=== PATIENT | male | born 1960 | race Caucasian/White ===

== ENCOUNTER 2017-05-09 09:13 | Emergency (ER) | payer MEDICARE, OTHER ==
[2017-05-09 09:13] VITALS: BMI 24.9
[2017-05-09 09:31] VITALS: BP 126/77; PULSE 75; RESP 18; TEMP 97.4; O2SAT 98
--- NOTE | 2017-05-09 10:27 | C.PDOC ---
History Of Present Illness 56-year-old male, presents to the emergency department with redness and swelling to the right eye. Patient notes watery discharge from the eye. Denies fevers, chills. Time Seen by Provider: 05/09/17 09:31 Chief Complaint (Nursing): Eye Problem History Per: Patient History/Exam Limitations: no limitations Onset/Duration Of Symptoms: Days Current Symptoms Are (Timing): Still Present Past Medical History Reviewed: Historical Data, Nursing Documentation, Vital Signs Vital Signs: Last Vital Signs Temp 97.4 F L 05/09/17 09:26 Pulse 75 05/09/17 09:26 Resp 18 05/09/17 09:26 BP 126/77 05/09/17 09:26 Pulse Ox 98 05/09/17 10:32 - Medical History PMH: Pneumonia Denies: Chronic Kidney Disease - [facility] Procedures DILATION OF 1 COR ART WITH DRUG-ELUT INTRALUM, PERC APPROACH (11/26/15) Family History: States: No Known Family Hx - Social History Hx Tobacco Use: Yes Hx Alcohol Use: Yes (social) Hx Substance Use: No - Immunization History Hx Influenza Vaccination: No Review Of Systems Constitutional: Negative for: Fever Eyes: Positive for: Vision Change, Eyelid Inflammation Respiratory: Negative for: Cough Physical Exam - Physical Exam Appears: Well, Non-toxic, No Acute Distress Skin: Warm, Dry, No Rash Head: Normacephalic Eye(s): right: Other (scleral injection with mild swelling and erythema of the upper eyelid. There is mild perioribital erythema. B/L eyes cloudy cornea, chronic.) Neurological/Psych: Oriented x3, Normal Speech ED Course And Treatment O2 Sat by Pulse Oximetry: 98 (RA) Pulse Ox Interpretation: Normal Progress Note: Patient treated with Clindamycin. On reassessment, patient is resting comfortably, and is in no acute distress. Patient was instructed to follow up with physician/clinic in 1-2 days for further evaluation. Disposition Counseled Patient/Family Regarding: Diagnosis, Need For Followup, Rx Given - Disposition Referrals: Ryan High [Staff Provider] - Disposition: HOME/ ROUTINE Disposition Time: 10:35 Condition: STABLE Additional Instructions: FOLLOW UP WITH YOUR EYE DOCTOR AT [facility] IN [place] 1-2 DAYS USE MEDICATIONS DIRECTED APPLY WARM COMPRESSES TO AREA SEVERAL TIMES DAILY RETURN TO ER IF SYMPTOMS WORSEN Prescriptions: Bacitracin [Bacitracin Opht OINT] 1 applic OD TID #1 tube Clindamycin [Cleocin] 300 mg PO TID #21 cap Forms: [facility] (Khmer), General Discharge Instructions Print Language: CYMRAES - Clinical Impression Clinical Impression: Blepharitis, right eye, Periorbital cellulitis of right eye - Scribe Statement The provider has reviewed the documentation as recorded by the Scribe (Mitchell Del Real) All medical record entries made by the Scribe were at my direction and personally dictated by me. I have reviewed the chart and agree that the record accurately reflects my personal performance of the history, physical exam, medical decision making, and the department course for this patient. I have also personally directed, reviewed, and agree with the discharge instructions and disposition.
== END 2017-05-09 10:42 | disposition home or self-care (01) ==
LOC: C.ER 09:13
DX: H01.001 Unspecified blepharitis right upper eyelid (principal); L03.213 Periorbital cellulitis; Z72.0 Tobacco use

== ENCOUNTER 2017-06-30 13:12 | Observation (INO) | payer MEDICARE, OTHER ==
[2017-06-30 13:13] VITALS: BMI 24.9
--- NOTE | 2017-06-30 13:51 | C.PDOC ---
History Of Present Illness 56yo male with cardiac history (unable to recall exactly), presents to ED with complaints of chest pain and back pain for the past day. Patient states the pain is left sided and denies any fever, chills, shortness of breath, weakness, numbness. Patient did have a PTCA done by Dr. Francis in 1026. He currently offers no other medical complaints. Time Seen by Provider: 06/30/17 13:23 Chief Complaint (Nursing): Chest Pain History Per: Patient History/Exam Limitations: no limitations Onset/Duration Of Symptoms: Days (1) Current Symptoms Are (Timing): Still Present Quality: "Pain" Past Medical History Reviewed: Historical Data, Nursing Documentation, Vital Signs Vital Signs: Last Vital Signs Temp 97.8 F 06/30/17 13:24 Pulse 64 06/30/17 15:49 Resp 16 06/30/17 15:49 BP 128/80 06/30/17 15:49 Pulse Ox 98 06/30/17 17:15 - Medical History PMH: Pneumonia Denies: Chronic Kidney Disease Surgical History: No Surg Hx - [facility] Procedures DILATION OF 1 COR ART WITH DRUG-ELUT INTRALUM, PERC APPROACH (11/26/15) Family History: States: Unknown Family Hx - Social History Hx Tobacco Use: Yes Hx Alcohol Use: Yes (social) Hx Substance Use: No - Immunization History Hx Influenza Vaccination: No Review Of Systems Except As Marked, All Systems Reviewed And Found Negative. Constitutional: Negative for: Fever, Chills Cardiovascular: Positive for: Chest Pain Respiratory: Negative for: Shortness of Breath Musculoskeletal: Positive for: Back Pain Neurological: Negative for: Weakness, Numbness Physical Exam - Physical Exam Appears: Non-toxic, No Acute Distress Skin: Normal Color, Warm, Dry Head: Atraumatic, Normacephalic Eye(s): bilateral: Normal Inspection, EOMI, right: Other (opaque cataract to right eye) Ear(s): Bilateral: Normal Neck: Normal ROM, Supple Chest: Symmetrical, No Tenderness Cardiovascular: Rhythm Regular Respiratory: Normal Breath Sounds, No Wheezing Gastrointestinal/Abdominal: Normal Exam Back: Normal Inspection, No CVA Tenderness, No Vertebral Tenderness, No Paraspinal Tenderness Extremity: Normal ROM, No Deformity, No Swelling Neurological/Psych: Oriented x3, Normal Speech, Normal Cognition ED Course And Treatment - Laboratory Results Result Diagrams: 06/30/17 13:56 06/30/17 13:56 Lab Interpretation: Normal ECG: Interpreted By Me ECG Rhythm: Sinus Rhythm, R BBB ECG Interpretation: No Acute Changes Rate From EC O2 Sat by Pulse Oximetry: 98 (RA) Pulse Ox Interpretation: Normal - Radiology CXR: Interpreted by Me CXR Interpretation: Yes: No Acute Disease Progress Note: Treated with ASA 325 mg PO Reassessment Condition: Unchanged - Physician Consult Information Physician Contacted: Lynn Boggs Outcome Of Conversation: admit. 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 - Scribe Statement The provider has reviewed the documentation as recorded by the Scribe (Magdalena Gómez) Provider Attestation: All medical record entries made by the Scribe were at my direction and personally dictated by me. I have reviewed the chart and agree that the record accurately reflects my personal performance of the history, physical exam, medical decision making, and the department course for this patient. I have also personally directed, reviewed, and agree with the discharge instructions and disposition. Decision To Admit - Pt Status Changed To: Hospital Disposition Of: Observation - . Bed Request Type: Telemetry Admitting Physician: Lynn Boggs Patient Diagnosis: Chest pain
[2017-06-30 14:02] LABS: BASO # 0.1 K/uL (0.0-0.2); BASO % 0.6 % (0.0-2.0); EOS # 0.1 K/uL (0.0-0.7); HEMOGLOBIN 17.3 g/dL (12.0-18.0); LYMPH # 1.5 K/uL (1.0-4.3); LYMPH % 15.2 % (20.0-40.0); MEAN CELL VOLUME 87.9 fL (80.0-94.0); MEAN CORPUSCULAR HEMOGLOBIN 30.3 pg (27.0-31.0); MEAN CORPUSCULAR HGB CONC 34.4 g/dL (33.0-37.0); MONO # 0.7 K/uL (0.0-0.8); MONO % 6.8 % (0.0-10.0); NEUT # 7.4 K/uL (1.8-7.0); NEUT % 76.4 % (50.0-75.0); NRBC % 0.1 % (0.0-2.0); RBC 5.7 Mil/uL (4.40-5.90); RED CELL DISTRIBUTION WIDTH 13.4 % (11.5-14.5); WHITE BLOOD COUNT 9.7 K/uL (4.8-10.8)
[2017-06-30 14:28] LABS: ALT/SGPT 42 U/L (21-72); AST/SGOT 45 U/L (17-59); BLOOD UREA NITROGEN 11 mg/dL (9-20); CALCIUM 9.3 mg/dl (8.6-10.4); GFR AFRICAN-AMERICAN > 60; GFR NON-AFRICAN AMERICAN > 60; LIPASE 73 U/L (23-300)
[2017-06-30 14:35] LABS: CK-MB 0.49 ng/mL (0.0-3.38)
[2017-06-30 14:42] LABS: SQUAMOUS EPITHIAL < 1 /hpf (0-5); URINE BILIRUBIN NEGATIVE (NEGATIVE); URINE BLOOD 1+ (NEGATIVE); URINE CLARITY Clear (Clear); URINE COLOR Yellow (YELLOW); URINE GLUCOSE (UA) NORMAL (Normal); URINE LEUKOCYTE ESTERASE NEG Leu/uL (Negative); URINE PROTEIN NEGATIVE (NEGATIVE); URINE UROBILINOGEN NORMAL mg/dL (0.2-1.0)
--- NOTE | 2017-06-30 14:49 | RAD ---
HISTORY: SOB COMPARISON: Chest radiograph dated 11/25/2015. TECHNIQUE: Chest PA and lateral FINDINGS: LUNGS: No active pulmonary disease. PLEURA: No significant pleural effusion identified. No pneumothorax apparent. CARDIOVASCULAR: Normal. OSSEOUS STRUCTURES: Unchanged. VISUALIZED UPPER ABDOMEN: Normal. OTHER FINDINGS: None. IMPRESSION: No active disease.
[2017-06-30] MEDS ORDERED: Iodixanol 320 MG/ML 100 ML BOTTLE IV ONE (17:00)
--- NOTE | 2017-06-30 17:50 | CT ---
PROCEDURE: CT Chest, Abdomen and Pelvis with intravenous contrast HISTORY: r/o aortic aneurysm COMPARISON: None. TECHNIQUE: 2.5 mm contiguous axial sections of the chest, abdomen and pelvis were acquired during rapid intravenous bolus administration of contrast material. IV dose administered: 100 mL Visipaque 320 Radiation dose: Total exam DLP = 1189.02 mGy-cm. This CT exam was performed using one or more of the following dose reduction techniques: Automated exposure control, adjustment of the mA and/or kV according to patient size, and/or use of iterative reconstruction technique. FINDINGS: CT CHEST WITH CONTRAST: LUNGS: Clear. No nodule, mass or consolidation. MEDIASTINUM: Unremarkable. Normal caliber aorta and pulmonary arterial trunk. No aortic dissection. Normal size heart. LYMPH NODES: Unremarkable. PLEURA: Unremarkable. No pneumothorax. No pleural fluid. BONES: Unremarkable. OTHER FINDINGS: None. CT ABDOMEN AND PELVIS: LIVER: Unremarkable. No gross lesion or ductal dilatation. GALLBLADDER AND BILE DUCTS: Unremarkable. PANCREAS: Unremarkable. No gross lesion or ductal dilatation. SPLEEN: Unremarkable. ADRENALS: Unremarkable. No mass. KIDNEYS AND URETERS: Unremarkable. No hydronephrosis. No solid mass. VASCULATURE: No evidence of abdominal aortic aneurysm. No evidence of abdominal aortic dissection. Celiac axis, SMA, VONNIE and renal arteries are unremarkable. BOWEL: Sigmoid diverticulosis. Transverse colonic diverticulosis. No evidence of diverticulitis. No bowel obstruction. APPENDIX: Normal appendix. PERITONEUM: Unremarkable. No free fluid. No free air. LYMPH NODES: Unremarkable. No enlarged lymph nodes. BLADDER: Unremarkable. REPRODUCTIVE: Unremarkable. BONES: No acute fracture. OTHER FINDINGS: None. IMPRESSION: Colonic diverticular disease. No evidence of thoracic or abdominal aortic aneurysm or dissection. No additional abnormality peer
[2017-06-30] MEDS: COSOPT OD SCH (21:56)
[2017-06-30] MEDS ORDERED: Brimonidine 0.2% Opth Sol (5ml) OD SCH (22:00)
[2017-06-30] MEDS ORDERED: Latanoprost 2.5 ml Opht Soln OD SCH (22:00)
--- NOTE | 2017-06-30 22:03 | CP.PCM.CON ---
History of Present Illness - History of Present Illness History of Present Illness: Patient admitted for chest pain Scheduled for stress test in am Past Patient History - Past Medical History & Family History Past Medical History?: Yes - Past Social History Smoking Status: Light Smoker < 10 Cigarettes Daily - CARDIAC Hx Cardiac Disorders: Yes - PULMONARY Hx Pneumonia: Yes - NEUROLOGICAL Hx Neurological Disorder: No - HEENT Hx HEENT Problems: Yes Hx Blind: Yes (rt eye) Hx Deafness: Yes Hx Glaucoma: Yes - RENAL Hx Chronic Kidney Disease: No - ENDOCRINE/METABOLIC Hx Endocrine Disorders: No - HEMATOLOGICAL/ONCOLOGICAL Hx Blood Disorders: No - INTEGUMENTARY Hx Dermatological Problems: No - MUSCULOSKELETAL/RHEUMATOLOGICAL Hx Musculoskeletal Disorders: No Hx Falls: No - GASTROINTESTINAL Other/Comment: had colonoscopy done - GENITOURINARY/GYNECOLOGICAL Hx Genitourinary Disorders: No - PSYCHIATRIC Hx Substance Use: No - SURGICAL HISTORY Hx Surgeries: Yes Other/Comment: left shoulder surgery (cannot remember when). multiple surgery to eyes - ANESTHESIA Hx Anesthesia: Yes Hx Anesthesia Reactions: No Meds Allergies/Adverse Reactions: Allergies Allergy/AdvReac Type Severity Reaction Status Date / Time No Known Allergies Allergy Verified 06/30/17 13:33 - Medications Medications: Current Medications Clopidogrel Bisulfate (Plavix) 75 mg PO DAILY [facility] Famotidine (Pepcid) 40 mg PO DAILY [facility] Home Med (Cosopt 2%-0.5% Opht) 1 drop OD Q12H [facility] Last Admin: 06/30/17 21:56 Dose: Not Given Latanoprost (Xalatan Opht) 1 ml OD Q12H [facility] Last Admin: 06/30/17 21:53 Dose: 1 ml Rosuvastatin Calcium (Crestor) 5 mg PO HS [facility] Last Admin: 06/30/17 21:20 Dose: 5 mg Results - Vital Signs Recent Vital Signs: Last Vital Signs Temp 97.2 F L 06/30/17 19:01 Pulse 62 06/30/17 19:01 Resp 20 06/30/17 19:01 BP 128/77 06/30/17 19:01 Pulse Ox 97 06/30/17 19:01 - Labs Result Diagrams: 06/30/17 13:56 06/30/17 13:56 Labs: Laboratory Results - last 24 hr 06/30/17 06/30/17 06/30/17 13:56 13:56 14:28 WBC 9.7 RBC 5.70 Hgb 17.3 Hct 50.1 MCV 87.9 MCH 30.3 MCHC 34.4 RDW 13.4 Plt Count 195 MPV 9.0 Neut % (Auto) 76.4 H Lymph % (Auto) 15.2 L Wilkes % (Auto) 6.8 Eos % (Auto) 1.0 Baso % (Auto) 0.6 Neut # (Auto) 7.4 H Lymph # (Auto) 1.5 Wilkes # (Auto) 0.7 Eos # (Auto) 0.1 Baso # (Auto) 0.1 Sodium 137 Potassium 4.2 Chloride 101 Carbon Dioxide 23 Anion Gap 18 BUN 11 Creatinine 0.9 Est GFR ( Amer) > 60 Est GFR (Non-Af Amer) > 60 Random Glucose 98 Calcium 9.3 Total Bilirubin 1.0 AST 45 ALT 42 Alkaline Phosphatase 64 CK-MB (Mass) 0.49 Troponin I < 0.0120 Total Protein 8.0 Albumin 4.0 Globulin 4.0 H Albumin/Globulin Ratio 1.0 Lipase 73 Urine Color Yellow Urine Clarity Clear Urine pH 6.0 Ur Specific [place] 1.009 Urine Protein Negative Urine Glucose (UA) Normal Urine Ketones Negative Urine Blood 1+ H Urine Nitrate Negative Urine Bilirubin Negative Urine Urobilinogen Normal Ur Leukocyte Esterase Neg Urine WBC (Auto) < 1 Urine RBC (Auto) 1 Ur Squamous Epith Cells < 1 06/30/17 19:56 WBC RBC Hgb Hct MCV MCH MCHC RDW Plt Count MPV Neut % (Auto) Lymph % (Auto) Wilkes % (Auto) Eos % (Auto) Baso % (Auto) Neut # (Auto) Lymph # (Auto) Wilkes # (Auto) Eos # (Auto) Baso # (Auto) Sodium Potassium Chloride Carbon Dioxide Anion Gap BUN Creatinine Est GFR ( Amer) Est GFR (Non-Af Amer) Random Glucose Calcium Total Bilirubin AST ALT Alkaline Phosphatase CK-MB (Mass) Troponin I 0.0170 Total Protein Albumin Globulin Albumin/Globulin Ratio Lipase Urine Color Urine Clarity Urine pH Ur Specific [place] Urine Protein Urine Glucose (UA) Urine Ketones Urine Blood Urine Nitrate Urine Bilirubin Urine Urobilinogen Ur Leukocyte Esterase Urine WBC (Auto) Urine RBC (Auto) Ur Squamous Epith Cells
[2017-07-01] MEDS: Enoxaparin 40 mg Syringe SC SCH (12:29)
[2017-07-01 14:09] LABS: IRON 116 ug/dL (49-181)
[2017-07-01 14:10] LABS: HDL CHOLESTEROL 23 mg/dL (30-70)
[2017-07-01 14:18] LABS: % IRON SATURATION 40 (20-55); TOTAL IRON BINDING CAPACITY 287 ug/dL (250-450)
[2017-07-01 14:21] LABS: LDL CHOLESTEROL 119 mg/dL (0-129)
[2017-07-01] MEDS: COSOPT OD SCH (14:50)
[2017-07-01 15:23] LABS: FOLATE > 20.0 ng/mL
[2017-07-01 16:35] VITALS: RESP 20
--- NOTE | 2017-07-01 17:52 | HP ---
CHIEF COMPLAINT: The patient was seen and examined on 06/30/2017 with chief complaint of chest pain. HISTORY OF PRESENT ILLNESS: Mr. Prudence Wells is a 56-year-old male with history of cardiac problems, came to the emergency room of [facility] complaining about chest pain and back pain for the past day. The patient states that the pain is left-sided, it is like a pressure. Denies fever or chills. No nausea or vomiting. No weakness and numbness. The patient did have PTCA done by Dr. Francis, he does not remember the date. He currently offers no other medical complaints. No hematuria, no hematochezia. PAST MEDICAL HISTORY: Pneumonia and history of cardiac disease, he does not remember the exact date. The patient is a very poor historian. PAST SURGICAL HISTORY: No surgical history. FAMILY HISTORY: Father and mother noncontributory. SOCIAL HISTORY: Tobacco, yes. Alcohol, social. Substance abuse, denied. ALLERGIES: THE PATIENT IS NOT ALLERGIC TO ANY MEDICATION. REVIEW OF SYSTEMS: The patient was seen and examined on the bedside late evening. At that moment, the chest pain was easing up, but complaining of back pain. No fever, no chills. No headache. No dizziness. No shortness of breath. Complaining about the back pain. No weakness or numbness. No dysuria, no hematuria. No swelling of the legs. PHYSICAL EXAMINATION: VITAL SIGNS: Temperature 97.8, pulse 64, respiratory rate 16, blood pressure 128/80, pulse oximetry 98%. HEENT: Head: Normocephalic, atraumatic. Eyes: PERRLA. Extraocular muscles intact. Conjunctivae clear. Nose patent. Mucous membranes moist. NECK: Supple. No carotid bruits. No JVD or thyromegaly. CHEST: Bilaterally symmetrical. HEART: S1, S2 positive. LUNGS: Clear to auscultation. ABDOMEN: Soft. Bowel sounds positive. No organomegaly. EXTREMITIES: No edema, no cyanosis. NEUROLOGIC: The patient is awake, alert, moving all 4 extremities. No focal deficits. LABS: White blood cell 9.7, hemoglobin 17.3, hematocrit 50.1, platelets 195. Sodium 137, potassium 4.2, BUN 11, creatinine 0.9, glucose 98. ASSESSMENT AND PLAN: Mr. Prudence Wells is a 56-year-old male with history of coronary artery disease, nephrolithiasis, came with chest pain, back pain. We admitted the patient, called consult with Dr. Francis. Waiting for Dr. Francis's input. Cardiac enzymes x3 ordered. Started on aspirin. CT angio done, showed chronic diverticular disease. No evidence of thoracic or abdominal aortic aneurysm or dissection. The patient was started on cholesterol medication. DVT prophylaxis given and GI prophylaxis given. Continue Plavix and eye drops. Repeat labs. We will follow up. Lynn Boggs MD
[2017-07-01] MEDS: DORZOLAMIDE OS SCH (19:17)
[2017-07-01] MEDS: TIMOLOL OS SCH (19:17)
[2017-07-01] MEDS ORDERED: Latanoprost 2.5 ml Opht Soln OD SCH (22:00)
--- NOTE | 2017-07-01 22:11 | CP.PCM.PN ---
Subjective - Date & Time of Evaluation Date of Evaluation: 07/01/17 Time of Evaluation: 16:10 - Subjective Subjective: Patient seen and evaluated Denies chest pain and dyspnea Objective - Vital Signs/Intake and Output Vital Signs (last 24 hours): Temp Pulse Resp BP Pulse Ox 97.9 F 68 20 103/61 98 07/01/17 16:00 07/01/17 16:00 07/01/17 16:00 07/01/17 16:00 07/01/17 16:00 - Medications Medications: Current Medications Clopidogrel Bisulfate (Plavix) 75 mg PO DAILY [facility] Last Admin: 07/01/17 12:29 Dose: 75 mg Enoxaparin Sodium (Lovenox) 40 mg SC DAILY [facility] Last Admin: 07/01/17 12:29 Dose: 40 mg Famotidine (Pepcid) 40 mg PO DAILY [facility] Last Admin: 07/01/17 12:29 Dose: 40 mg Home Med (Patient's Own Drops) 1 drop OS BID [facility] Last Admin: 07/01/17 19:17 Dose: 1 drop Latanoprost (Xalatan Opht) 0.05 ml OD [facility] Last Admin: 07/01/17 21:02 Dose: 0.05 ml Rosuvastatin Calcium (Crestor) 5 mg PO [facility] Last Admin: 07/01/17 21:02 Dose: 5 mg - Labs Labs: 06/30/17 13:56 06/30/17 13:56 - Head Exam Head Exam: ATRAUMATIC - Eye Exam Eye Exam: EOMI, PERRL - ENT Exam ENT Exam: Mucous Membranes Moist - Neck Exam Neck Exam: Normal Inspection - Respiratory Exam Respiratory Exam: Clear to Ausculation Bilateral, NORMAL BREATHING PATTERN - Cardiovascular Exam Cardiovascular Exam: REGULAR RHYTHM, +S1, +S2 - GI/Abdominal Exam GI & Abdominal Exam: Soft, Normal Bowel Sounds - Extremities Exam Extremities Exam: Full ROM - Neurological Exam Neurological Exam: Alert, CN II-XII Intact, Oriented x3 - Psychiatric Exam Psychiatric exam: Normal Mood - Skin Skin Exam: Warm Assessment and Plan - Assessment and Plan (Free Text) Assessment: 1. Non cardiac chest pain Stress test normal and normal EF 2. Hx of CAD s/p stent Continue ASA, Statins and other medications Cardiac point of view cleared for discharge F/U Dr. Blanchard (Primary Public Records Researcher) in 1 month
--- NOTE | 2017-07-02 05:09 | PN ---
DATE: 07/01/2017 SUBJECTIVE: The patient was seen and examined at the bedside on 07/01/2017. Son, daughter, mother, and grand kids were on the bedside, status post stress testing, looking comfortable. No nausea, vomiting, diarrhea. No hematuria, no hematochezia. No chest pain, no palpitation. PHYSICAL EXAMINATION: VITAL SIGNS: Temperature 97.9, pulse 68, blood pressure 103/61, respiratory rate 20. HEENT: Head: Normocephalic, atraumatic. Eyes: PERRLA. EOMs intact. Conjunctivae clear. Nose patent. NECK: Supple. No carotid bruits, JVD, thyromegaly. CHEST: Bilaterally symmetrical. HEART: S1 and S2 positive. LUNGS: Clear to auscultation. ABDOMEN: Soft. Positive bowel sounds. No organomegaly. EXTREMITIES: No edema, no cyanosis. NEURO: The patient is awake, alert, moving all 4 extremities. No focal deficits. MEDICATIONS: Crestor, Lovenox, Pepcid, Plavix, ophthalmic solution. LABORATORY DATA: White blood cell 9.7, hemoglobin 17.3, hematocrit is 50.1, platelets 195. Triglyceride is 176, HDL 23. ASSESSMENT AND PLAN: Mr. Prudence Wells is a 56-year-old male with hypertriglyceridemia, dyslipidemia, hematuria, seen by biometrics head, Dr. Francis, went for stress today, the patient had known cardiac chest pain. Stress test normal, history of coronary artery disease, status post stent. Continue with the aspirin, statin, and other medications. As per patient's family, has back pain also and the presence of hematuria. I will do ultrasound of renal to rule out nephrolithiasis. CAT scan of chest, abdomen, and pelvis done. It shows diverticulosis, but the patient do not have any signs of diverticulitis. Length of time discussion done with the patient's daughter. GI, DVT prophylaxis, physical therapy. We will follow. Lynn Boggs MD [facility]
[2017-07-02 07:45] LABS: HEMOGLOBIN 16.8 g/dL (12.0-18.0); MEAN CELL VOLUME 88.2 fL (80.0-94.0); MEAN CORPUSCULAR HEMOGLOBIN 30.3 pg (27.0-31.0); MEAN CORPUSCULAR HGB CONC 34.4 g/dL (33.0-37.0); RBC 5.55 Mil/uL (4.40-5.90); RED CELL DISTRIBUTION WIDTH 13.5 % (11.5-14.5); WHITE BLOOD COUNT 10.1 K/uL (4.8-10.8)
[2017-07-02 08:02] LABS: BLOOD UREA NITROGEN 17 mg/dL (9-20); CALCIUM 8.8 mg/dl (8.6-10.4); GFR AFRICAN-AMERICAN > 60; GFR NON-AFRICAN AMERICAN > 60
[2017-07-02 08:34] VITALS: BP 119/76; TEMP 97.5; O2SAT 97
--- NOTE | 2017-07-02 10:47 | US ---
PROCEDURE: Ultrasound of the Kidneys HISTORY: hematurea COMPARISON: None available. TECHNIQUE: Sonogram of the kidneys. FINDINGS: RIGHT KIDNEY: Measures: 11.1 cm. Normal in size, contour and echogenicity. No stone, solid mass lesion or hydronephrosis visualized. LEFT KIDNEY: Measures: 11.2 cm. Normal in size, contour and echogenicity. Questionable parapelvic cyst with nodular mural calcification, 7 mm diameter. This is not demonstrated on recent CT examination of 06/30/2017, however. Significance uncertain. No other mass. No hydronephrosis. OTHER FINDINGS: None. IMPRESSION: Unremarkable renal sonogram.
[2017-07-02] MEDS: DORZOLAMIDE OS SCH (10:54)
[2017-07-02] MEDS: TIMOLOL OS SCH (10:54)
[2017-07-02] MEDS: Enoxaparin 40 mg Syringe SC SCH (10:55)
--- NOTE | 2017-07-02 12:39 | MRI ---
PROCEDURE: MRI lumbar spine dated 07/02/2017 HISTORY: Pain. COMPARISON: None available. TECHNIQUE: Multiecho multiplanar sequences were performed through the lumbar spine without the use of intravenous contrast. FINDINGS: Current study reveals no acute compression fractures no retropulsed fragments. There is however a Schmorl's node seen along the L3 and L4 endplates surrounded by mild edema. Small chronic appearing Schmorl's nodes seen along the posterior L1-L2 endplates. Vertebral bodies otherwise exhibit normal stature. Vertebral bodies and facets normally aligned. Mild multilevel degenerative spondylosis of the lumbar spine. T12-L1: Mild disc desiccation however disc space height relatively maintained. No disc herniation or significant disc bulge. Overall central bony canal is quite capacious. Facets are slightly overgrown. Exit foramina adequate. L1-2: There is disc desiccation and minor posterior disc space narrowing and minor cystic cut degenerative endplate changes or Schmorl's node formation along the right posterolateral endplates. . There is mild right proximal foraminal disc bulge ridge complex with minimal disc bulge seen in the proximal expressed of the left exit foramen. The overall central canal is quite capacious. Facets are mildly hypertrophic. Exit foramina appear adequate. L2-3: Mild age related disc desiccation. Disc space height relatively maintained. Small broad-based disc bulge larger on the left than right with extension into the proximal margins of the left exit foramen. There is a tiny radial tear in the left posterior and posterolateral margin of the disc. Changes result in mild flattening of the ventral surface of the thecal sac more so on the left side and mild posterior displacement of the nearly exiting intrathecal L3 nerve roots. Central canal measured at midline adequate. Facet joints are mildly hypertrophic Exit foramina are adequate despite encroaching disc and facets. L3-4: As mentioned above, there is Schmorl's node changes and surrounding edema along the L3 and L4 endplates. Mild disc desiccation and disc space narrowing more so along the posterior disc margin. Small broad-based disc ridge complex extends slightly into the proximal inferior margins of both exit foramina more so on the left side. There is some flattening of the ventral surface of the thecal sac and what appears represent some minimal posterior displacement of the nearly exiting intrathecal L4 nerve roots. Central canal measured at midline adequate. Proximal right exit foramen marginal to slightly narrowed although adequate on the left. Facet joints are hypertrophic. L4-5: Mild disc desiccation and posterior disc space narrowing. Mild asymmetric broad based disc bulging right larger than left. Moderate facet arthropathy. Canal and foraminal adequate. L5-S1: No disc herniation, spinal canal stenosis or neural foraminal narrowing. Moderate facet arthropathy. OTHER FINDINGS: Conus terminates. IMPRESSION: No acute fractures. Small Schmorl's node surrounded by edema along the L3-L4 endplates. Minor multilevel degenerative spondylosis as detailed above
[2017-07-02 13:53] VITALS: PULSE 60
[2017-07-02 14:16] LABS: URINE BACTERIA RARE (<OCC); URINE BILIRUBIN NEGATIVE (NEGATIVE); URINE BLOOD NEGATIVE (NEGATIVE); URINE CLARITY Clear (Clear); URINE COLOR Yellow (YELLOW); URINE GLUCOSE (UA) NORMAL (Normal); URINE LEUKOCYTE ESTERASE NEG Leu/uL (Negative); URINE PROTEIN NEGATIVE (NEGATIVE); URINE UROBILINOGEN NORMAL mg/dL (0.2-1.0)
--- NOTE | 2017-07-02 17:23 | CP.PCM.PN ---
Subjective - Date & Time of Evaluation Date of Evaluation: 07/02/17 Time of Evaluation: 14:00 - Subjective Subjective: Patient seen today , denies any chest pain sob, palpitations, dizziness, no overnight events reported by RN S/P STRESS TEST-Stress test normal and normal EF Objective - Vital Signs/Intake and Output Vital Signs (last 24 hours): Temp Pulse Resp BP Pulse Ox 97.5 F L 60 20 119/76 97 07/02/17 08:00 07/02/17 08:00 07/02/17 08:00 07/02/17 08:00 07/02/17 08:00 - Labs Labs: 07/02/17 07:39 07/02/17 07:39 Assessment and Plan - Assessment and Plan (Free Text) Assessment: a/p 56 yr old male with pmhx CAD admitted with chest pain s/p stress test- normal stress test and normal EF seen by Cardiology Dr. Francis, cleared fro discharge from cardiology stand point and continu e statin and aspirin and f/u with Dr. Blanchard office in 1 month Discharge plan discussed with Dr. Murray, stable for discharge home and f/ u with Dr. Murray office on Wednesday Discharge plan discussed with patient , who understands and agrees with plan
== END 2017-07-02 14:52 | disposition home or self-care (01) ==
LOC: C.ER 13:12 → C.9E 15:33 → C.6T 15:58
PROVIDERS: ADMIT Internal Medicine; ATTEND Internal Medicine
DX: R07.9 Chest pain, unspecified (principal); Z95.5 Presence of coronary angioplasty implant and graft; Z87.891 Personal history of nicotine dependence; Z87.442 Personal history of urinary calculi; I25.10 Atherosclerotic heart disease of native coronary artery without angina pectoris; M54.9 Dorsalgia, unspecified; K57.90 Diverticulosis of intestine, part unspecified, without perforation or abscess without bleeding; H54.61 Unqualified visual loss, right eye, normal vision left eye; H91.90 Unspecified hearing loss, unspecified ear; H40.9 Unspecified glaucoma; E78.5 Hyperlipidemia, unspecified; E78.1 Pure hyperglyceridemia; R31.9 Hematuria, unspecified
CPT/HCPCS: 36415; 71046; 72148; 74174; 74175; 76770; 80048; 80053; 80061; 81001; 82553; 82607; 82746; 83036; 83540; 83550; 83690; 84443; 84484; 85025; 85027; 99285; G0378; J1650; J2785; Q9967

== ENCOUNTER 2017-09-18 10:38 | Inpatient (IN) | payer MEDICARE, OTHER ==
[2017-09-18 10:38] VITALS: BMI 26.1
--- NOTE | 2017-09-18 11:08 | C.PDOC ---
History Of Present Illness 57 year old male presents to the ER via EMS complaining of chest pain. Pain was complaining of midsternal and left sided chest pain and burning sensation. Patient states ALS gave him aspirin and 1 nitro spray and the pain resolved. Patient denies any fever, chills, cough, shortness of breath, leg swelling, abdominal pain or recent travel. Time Seen by Provider: 09/18/17 10:53 Chief Complaint (Nursing): Chest Pain History Per: Patient History/Exam Limitations: no limitations Onset/Duration Of Symptoms: Hrs Current Symptoms Are (Timing): Gone Quality: Burning Past Medical History Reviewed: Historical Data, Nursing Documentation, Vital Signs Vital Signs: Last Vital Signs Temp 97.7 F 09/18/17 10:52 Pulse 57 L 09/18/17 10:52 Resp 18 09/18/17 10:52 BP 96/51 L 09/18/17 10:52 Pulse Ox 97 09/18/17 12:28 - Medical History PMH: HTN, Hypercholesterolemia, Pneumonia Denies: Chronic Kidney Disease Surgical History: No Surg Hx - [facility] Procedures DILATION OF 1 COR ART WITH DRUG-ELUT INTRALUM, PERC APPROACH (11/26/15) FLUOROSCOPY OF LEFT HEART USING OTHER CONTRAST (07/06/17) FLUOROSCOPY OF MULTIPLE CORONARY ARTERIES USING OTH CONTRAST (07/06/17) MEASURE OF CARDIAC SAMPL & PRESSURE, L HEART, PERC APPROACH (07/06/17) Family History: States: No Known Family Hx - Social History Hx Tobacco Use: Yes Hx Alcohol Use: Yes (social) Hx Substance Use: No - Immunization History Hx Influenza Vaccination: No Review Of Systems Constitutional: Negative for: Fever, Chills Cardiovascular: Positive for: Chest Pain (Resolved). Negative for: Edema Respiratory: Negative for: Cough, Shortness of Breath Gastrointestinal: Negative for: Abdominal Pain Physical Exam - Physical Exam Appears: Non-toxic, No Acute Distress Skin: Normal Color, Warm, Dry Head: Atraumatic, Normacephalic Eye(s): right: Other (Blind), left: Normal Inspection Ear(s): Bilateral: Other (Hard of hearing ) Oral Mucosa: Moist Neck: Normal ROM Chest: Tenderness (Tenderness to palpation anterior chest wall ) Cardiovascular: Rhythm Regular, No Murmur Respiratory: Normal Breath Sounds, No Rales, No Rhonchi Extremity: Bilateral: Atraumatic, No Pedal Edema, Normal Color And Temperature, Normal ROM Pulses: Left Radial: Normal Neurological/Psych: Oriented x3, Normal Speech Gait: Steady ED Course And Treatment - Laboratory Results Result Diagrams: 09/18/17 11:28 09/18/17 11:28 Lab Interpretation: No Acute Changes ECG: Viewed By Me ECG Rhythm: Sinus Bradycardia, R BBB ECG Interpretation: No Changes From Prior (07/07/17 ) O2 Sat by Pulse Oximetry: 97 (RA) Pulse Ox Interpretation: Normal - Radiology CXR: Interpreted by Me, Viewed By Me CXR Interpretation: Yes: No Acute Disease. No: Infiltrates, Pnemothorax Medical Decision Making Medical Decision Making: Impression: Chest pain,resolved Prior records reviewed: Patient had normal stress test and normal EF seen by Cardiology Dr. Francis on 07/01/17 Orders: -Labs -UA -CXR Progress: Patient placed on gambling monitor and already treated by EMS with nitro and ASA with resolution of chest pain. Orders placed for labs and CXR. Labs reviewed with no acute findings. Based on cardiac and past history and present complaint of chest pain, cannot exclude ACS. Will place on observation admission and repeat cardiac enzymes. Patient remained hemodynamically stable during ED observation. Contact Dr Boggs who is away and Dr Briones is covering. [address] Briones, Internal Medicine. Patient will be admitted for observation. 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 - Scribe Statement The provider has reviewed the documentation as recorded by the Scribe Chandrika Deshpande All medical record entries made by the Jaymeibe were at my direction and personally dictated by me. I have reviewed the chart and agree that the record accurately reflects my personal performance of the history, physical exam, medical decision making, and the department course for this patient. I have also personally directed, reviewed, and agree with the discharge instructions and disposition. Decision To Admit - Pt Status Changed To: Hospital Disposition Of: Observation - . Bed Request Type: Telemetry Admitting Physician: Samm Briones Patient Diagnosis: Chest pain
[2017-09-18 11:33] LABS: BASO % 0.5 % (0.0-2.0); EOS # 0.1 K/uL (0.0-0.7); HEMOGLOBIN 15.2 g/dL (12.0-18.0); LYMPH # 1.2 K/uL (1.0-4.3); LYMPH % 16.1 % (20.0-40.0); MEAN CELL VOLUME 88.8 fL (80.0-94.0); MEAN CORPUSCULAR HEMOGLOBIN 30.4 pg (27.0-31.0); MEAN CORPUSCULAR HGB CONC 34.2 g/dL (33.0-37.0); MEAN PLATELET VOLUME 9.5 fL (7.2-11.7); MONO # 0.3 K/uL (0.0-0.8); MONO % 4.2 % (0.0-10.0); NEUT # 5.8 K/uL (1.8-7.0); NEUT % 78.2 % (50.0-75.0); RBC 5.02 Mil/uL (4.40-5.90); RED CELL DISTRIBUTION WIDTH 13.8 % (11.5-14.5); WHITE BLOOD COUNT 7.5 K/uL (4.8-10.8)
[2017-09-18 11:45] LABS: INR 1.2; PROTHROMBIN TIME 12.9 SECONDS (9.7-12.2)
[2017-09-18 11:47] LABS: ALB/GLOB RATIO 1.5 (1.0-2.1); ALT/SGPT 39 U/L (21-72); AST/SGOT 43 U/L (17-59); BLOOD UREA NITROGEN 13 mg/dL (9-20); CALCIUM 9.1 mg/dl (8.6-10.4); GFR AFRICAN-AMERICAN > 60; GFR NON-AFRICAN AMERICAN > 60
[2017-09-18 12:08] LABS: URINE BILIRUBIN NEGATIVE (NEGATIVE); URINE BLOOD 1+ (NEGATIVE); URINE CLARITY Clear (Clear); URINE GLUCOSE (UA) NORMAL (Normal); URINE LEUKOCYTE ESTERASE NEG Leu/uL (Negative); URINE PROTEIN NEGATIVE (NEGATIVE)
[2017-09-18 12:11] LABS: URINE COLOR AMBER (YELLOW)
--- NOTE | 2017-09-18 15:29 | RAD ---
PROCEDURE: CHEST RADIOGRAPH, 1 VIEW HISTORY: chest pain COMPARISON: Comparison chest 06/30/2017 FINDINGS: LUNGS: Clear. PLEURA: No pneumothorax or pleural fluid seen. CARDIOVASCULAR: Normal. OSSEOUS STRUCTURES: No significant abnormalities. VISUALIZED UPPER ABDOMEN: Normal. OTHER FINDINGS: None. IMPRESSION: No active disease.
[2017-09-18] MEDS: Alum-Mag Hydrox-Simethicone Susp (30 mL) PO SCH (18:12)
[2017-09-18] MEDS: Sodium Chloride 0.9% 1,000 ML IV SCH (20:36)
[2017-09-18] MEDS: Enoxaparin 80 mg Syringe SC SCH (20:51)
--- NOTE | 2017-09-18 23:14 | CP.PCM.PN ---
Subjective - Date & Time of Evaluation Date of Evaluation: 09/18/17 Time of Evaluation: 20:25 - Subjective Subjective: Patient seen and evaluated Admitted for chest pain Now Troponin positive Add therapeutic Lovenox Continue ASA and Plavix and Statin Objective - Vital Signs/Intake and Output Vital Signs (last 24 hours): Temp Pulse Resp BP Pulse Ox 97.4 F L 52 L 18 98/54 L 100 09/18/17 16:25 09/18/17 16:25 09/18/17 16:25 09/18/17 17:43 09/18/17 20:21 - Medications Medications: Current Medications Al Hydrox/Mg Hydrox/Simethicone (Maalox Plus 30 Ml) 30 ml PO TID [facility] Last Admin: 09/18/17 18:12 Dose: 30 ml Aspirin (Ecotrin) 81 mg PO DAILY [facility] Last Admin: 09/18/17 12:39 Dose: Not Given Clopidogrel Bisulfate (Plavix) 75 mg PO DAILY [facility] Last Admin: 09/18/17 12:46 Dose: 75 mg Enoxaparin Sodium (Lovenox) 70 mg SC Q12H [facility] Last Admin: 09/18/17 20:51 Dose: 70 mg Sodium Chloride (Sodium Chloride 0.9%) 1,000 mls @ 80 mls/hr IV .[id number] [facility] Stop: 09/20/17 20:15 Last Admin: 09/18/17 20:36 Dose: 80 mls/hr Metoprolol Tartrate (Lopressor) 25 mg PO BID [facility] Last Admin: 09/18/17 17:43 Dose: Not Given Metoprolol Tartrate (Lopressor) 12.5 mg PO BID [facility] Rosuvastatin Calcium (Crestor) 5 mg PO HS [facility] Last Admin: 09/18/17 21:18 Dose: 5 mg - Labs Labs: 09/18/17 11:28 09/18/17 11:28 PT 12.9 SECONDS (9.7-12.2) H 09/18/17 11:28 INR 1.2 09/18/17 11:28 APTT 34 SECONDS (21-34) 09/18/17 11:28
--- NOTE | 2017-09-18 23:28 | CP.PCM.HP ---
Past Patient History - Infectious Disease Hx of Infectious Diseases: None - Past Medical History & Family History Past Medical History?: Yes - Past Social History Smoking Status: Light Smoker < 10 Cigarettes Daily - CARDIAC Hx Hypercholesterolemia: Yes Hx Hypertension: Yes - PULMONARY Hx Pneumonia: Yes - NEUROLOGICAL Hx Neurological Disorder: No - HEENT Hx HEENT Problems: Yes Hx Blind: Yes (rt eye) Hx Deafness: Yes Hx Glaucoma: Yes - RENAL Hx Chronic Kidney Disease: No - ENDOCRINE/METABOLIC Hx Endocrine Disorders: No - HEMATOLOGICAL/ONCOLOGICAL Hx Blood Disorders: No - INTEGUMENTARY Hx Dermatological Problems: No - MUSCULOSKELETAL/RHEUMATOLOGICAL Hx Musculoskeletal Disorders: No Hx Falls: No - GASTROINTESTINAL Other/Comment: had colonoscopy done - GENITOURINARY/GYNECOLOGICAL Hx Genitourinary Disorders: No - PSYCHIATRIC Hx Substance Use: No - SURGICAL HISTORY Hx Surgeries: Yes Hx Cardiac Catheterization: Yes Other/Comment: left shoulder surgery (cannot remember when). multiple surgery to eyes - ANESTHESIA Hx Anesthesia Reactions: No Meds Allergies/Adverse Reactions: Allergies Allergy/AdvReac Type Severity Reaction Status Date / Time No Known Allergies Allergy Verified 09/18/17 10:56 Results - Vital Signs Recent Vital Signs: Last Vital Signs Temp 97.4 F L 09/18/17 16:25 Pulse 52 L 09/18/17 16:25 Resp 18 09/18/17 16:25 BP 98/54 L 09/18/17 17:43 Pulse Ox 100 09/18/17 20:21 - Labs Result Diagrams: 09/18/17 11:28 09/18/17 11:28 Labs: Laboratory Results - last 24 hr 09/18/17 09/18/17 09/18/17 11:28 11:28 11:28 WBC 7.5 RBC 5.02 Hgb 15.2 Hct 44.6 MCV 88.8 MCH 30.4 MCHC 34.2 RDW 13.8 Plt Count 174 MPV 9.5 Neut % (Auto) 78.2 H Lymph % (Auto) 16.1 L [place] % (Auto) 4.2 Eos % (Auto) 1.0 Baso % (Auto) 0.5 Neut # (Auto) 5.8 Lymph # (Auto) 1.2 [place] # (Auto) 0.3 Eos # (Auto) 0.1 Baso # (Auto) 0.0 PT 12.9 H INR 1.2 APTT 34 Sodium 144 Potassium 3.7 Chloride 108 H Carbon Dioxide 25 Anion Gap 15 BUN 13 Creatinine 0.8 Est GFR ( Amer) > 60 Est GFR (Non-Af Amer) > 60 Random Glucose 175 H Calcium 9.1 Total Bilirubin 1.6 H AST 43 ALT 39 Alkaline Phosphatase 70 Troponin I 0.0190 Total Protein 6.8 Albumin 4.0 Globulin 2.8 Albumin/Globulin Ratio 1.5 Urine Color Urine Clarity Urine pH Ur Specific [place] Urine Protein Urine Glucose (UA) Urine Ketones Urine Blood Urine Nitrate Urine Bilirubin Urine Urobilinogen Ur Leukocyte Esterase Urine WBC (Auto) Urine RBC (Auto) 09/18/17 09/18/17 11:57 18:30 WBC RBC Hgb Hct MCV MCH MCHC RDW Plt Count MPV Neut % (Auto) Lymph % (Auto) [place] % (Auto) Eos % (Auto) Baso % (Auto) Neut # (Auto) Lymph # (Auto) [place] # (Auto) Eos # (Auto) Baso # (Auto) PT INR APTT Sodium Potassium Chloride Carbon Dioxide Anion Gap BUN Creatinine Est GFR ( Amer) Est GFR (Non-Af Amer) Random Glucose Calcium Total Bilirubin AST ALT Alkaline Phosphatase Troponin I 0.2570 H* Total Protein Albumin Globulin Albumin/Globulin Ratio Urine Color [place] Urine Clarity Clear Urine pH 5.0 Ur Specific [place] 1.028 Urine Protein Negative Urine Glucose (UA) Normal Urine Ketones Negative Urine Blood 1+ H Urine Nitrate Negative Urine Bilirubin Negative Urine Urobilinogen 4.0 Ur Leukocyte Esterase Neg Urine WBC (Auto) 1 Urine RBC (Auto) 9 H
[2017-09-19 02:12] LABS: CK-MB 1.29 ng/mL (0.0-3.38); TROPONIN I 0.123 ng/mL (0.00-0.120)
--- NOTE | 2017-09-19 09:43 | HP ---
CHIEF COMPLAINT: Chest pain. HISTORY OF PRESENT ILLNESS: This is a 57-year-old male with history of coronary artery disease, status post angioplasty and stent, hypertension, hyperlipidemia, who is compliant with his diet, medication, and followup. According to the patient, last night, he developed substernal chest pain after he ate some food. Nonexertional, nonradiating, not excruciating with diaphoresis or dizziness. Chest pain is dull, burning in character, feels like heartburn. The patient denies any nausea or vomiting. He denies any history of dizziness or loss of consciousness. He denies any polyuria, polydipsia or polyphagia. He denies any hematuria or pyuria. He denies any sneezing, itchy eyes, or itchy nose. There is no history of trauma, fall, or loss of consciousness. PAST MEDICAL HISTORY: Hypertension, hyperlipidemia, CAD, status post angioplasty. SOCIAL HISTORY: He smokes. He drinks. FAMILY HISTORY: Nonobtainable. CURRENT MEDICATIONS: Lopressor, Plavix, Lipitor, Aspirin. PHYSICAL EXAMINATION: GENERAL: An elderly middle-aged male, in no acute distress. VITAL SIGNS: Blood pressure 96/51, pulse 52, respiratory rate 18, temperature 97.4. SKIN: Senile turgor. No bruises. No purpura. HEENT: Atraumatic, normocephalic. Negative pallor. NECK: Supple. No JVD. No lymph node. No thyromegaly. No carotid bruit. CHEST WALL: Bilateral symmetrical expansion. LUNGS: Bilaterally clear. No rales. No rhonchi. CVS: S1, S2 regular. No heave noted. ABDOMEN: Soft, nontender. Bowel sounds are positive. RECTAL: No masses. No bleeding. EXTREMITIES: No clubbing, cyanosis, or edema. SAUSAGE WRAPPER: Awake, alert, oriented x3. Cranial nerve II through XII are normal. Power 5/5 x4. Plantars are downgoing. ASSESSMENT: 1. Chest pain, rule out myocardial infarction. 2. Hypertension. 3. Hyperlipidemia. PLAN: Admit. Detailed orders written. Seen and examined. Samm Briones MD [facility] # [id number]
[2017-09-19] MEDS ORDERED: Enoxaparin 40 mg Syringe SC SCH (10:00)
[2017-09-19] MEDS: Alum-Mag Hydrox-Simethicone Susp (30 mL) PO SCH ×3 (10:56→18:13)
[2017-09-19] MEDS: Enoxaparin 80 mg Syringe SC SCH ×2 (10:57→21:01)
[2017-09-19] MEDS: Sodium Chloride 0.9% 1,000 ML IV SCH ×2 (10:58→21:03)
--- NOTE | 2017-09-19 22:10 | CP.PCM.PN ---
Subjective - Date & Time of Evaluation Date of Evaluation: 09/19/17 Time of Evaluation: 18:10 - Subjective Subjective: Patient seen and evaluated Currently no chest pain Prior cath Non obstructive Stress test in am If positive will recath Objective - Vital Signs/Intake and Output Vital Signs (last 24 hours): Temp Pulse Resp BP Pulse Ox 97.7 F 75 20 119/68 97 09/19/17 15:00 09/19/17 21:32 09/19/17 15:00 09/19/17 21:32 09/19/17 15:00 - Medications Medications: Current Medications Al Hydrox/Mg Hydrox/Simethicone (Maalox Plus 30 Ml) 30 ml PO TID [facility] Last Admin: 09/19/17 18:13 Dose: 30 ml Aspirin (Ecotrin) 81 mg PO DAILY [facility] Last Admin: 09/19/17 10:56 Dose: 81 mg Clopidogrel Bisulfate (Plavix) 75 mg PO DAILY [facility] Last Admin: 09/19/17 10:56 Dose: 75 mg Enoxaparin Sodium (Lovenox) 70 mg SC Q12H [facility] Last Admin: 09/19/17 21:01 Dose: 70 mg Sodium Chloride (Sodium Chloride 0.9%) 1,000 mls @ 80 mls/hr IV .[id number] [facility] Stop: 09/20/17 20:15 Last Admin: 09/19/17 21:03 Dose: 80 mls/hr Metoprolol Tartrate (Lopressor) 25 mg PO BID [facility] Last Admin: 09/19/17 21:29 Dose: Not Given Metoprolol Tartrate (Lopressor) 12.5 mg PO BID [facility] Last Admin: 09/19/17 18:18 Dose: 12.5 mg Rosuvastatin Calcium (Crestor) 5 mg PO HS [facility] Last Admin: 09/18/17 21:18 Dose: 5 mg - Labs Labs: 09/18/17 11:28 09/18/17 11:28 PT 12.9 SECONDS (9.7-12.2) H 09/18/17 11:28 INR 1.2 09/18/17 11:28 APTT 34 SECONDS (21-34) 09/18/17 11:28
--- NOTE | 2017-09-19 23:40 | CP.PCM.PN ---
Objective - Vital Signs/Intake and Output Vital Signs (last 24 hours): Temp Pulse Resp BP Pulse Ox 97.7 F 75 20 119/68 97 09/19/17 15:00 09/19/17 21:32 09/19/17 15:00 09/19/17 21:32 09/19/17 15:00 - Medications Medications: Current Medications Al Hydrox/Mg Hydrox/Simethicone (Maalox Plus 30 Ml) 30 ml PO TID [facility] Last Admin: 09/19/17 18:13 Dose: 30 ml Aspirin (Ecotrin) 81 mg PO DAILY [facility] Last Admin: 09/19/17 10:56 Dose: 81 mg Clopidogrel Bisulfate (Plavix) 75 mg PO DAILY [facility] Last Admin: 09/19/17 10:56 Dose: 75 mg Enoxaparin Sodium (Lovenox) 70 mg SC Q12H [facility] Last Admin: 09/19/17 21:01 Dose: 70 mg Metoprolol Tartrate (Lopressor) 12.5 mg PO BID [facility] Last Admin: 09/19/17 18:18 Dose: 12.5 mg Rosuvastatin Calcium (Crestor) 5 mg PO HS [facility] Last Admin: 09/19/17 22:56 Dose: 5 mg - Labs Labs: 09/18/17 11:28 09/18/17 11:28 PT 12.9 SECONDS (9.7-12.2) H 09/18/17 11:28 INR 1.2 09/18/17 11:28 APTT 34 SECONDS (21-34) 09/18/17 11:28
--- NOTE | 2017-09-20 04:45 | PN ---
DATE: 09/19/2017 SUBJECTIVE: The patient denies any chest pain. Now, he feels better. His troponin is negative. I discussed the case with Dr. Francis. PHYSICAL EXAMINATION: LUNGS: Clear. CVS: S1 and S2 are regular. ABDOMEN: Soft. ASSESSMENT: 1. Chest pain, rule out myocardial infarction, positive troponin. 2. Hyperlipidemia. PLAN: Per Cardiology, monitor the patient. Samm Briones MD
[2017-09-20] MEDS: Alum-Mag Hydrox-Simethicone Susp (30 mL) PO SCH ×3 (10:53→17:20)
[2017-09-20] MEDS: Enoxaparin 80 mg Syringe SC SCH ×2 (10:54→21:22)
[2017-09-20 11:19] LABS: BASO % 0.4 % (0.0-2.0); EOS # 0.1 K/uL (0.0-0.7); EOS % 0.8 % (0.0-4.0); HEMOGLOBIN 16.5 g/dL (12.0-18.0); LYMPH # 1.3 K/uL (1.0-4.3); MEAN CELL VOLUME 88.8 fL (80.0-94.0); MEAN CORPUSCULAR HEMOGLOBIN 30.7 pg (27.0-31.0); MEAN CORPUSCULAR HGB CONC 34.6 g/dL (33.0-37.0); MEAN PLATELET VOLUME 9.7 fL (7.2-11.7); MONO # 0.4 K/uL (0.0-0.8); MONO % 5.1 % (0.0-10.0); NEUT % 76.7 % (50.0-75.0); NRBC % 0.1 % (0.0-2.0); RBC 5.36 Mil/uL (4.40-5.90); RED CELL DISTRIBUTION WIDTH 13.7 % (11.5-14.5); WHITE BLOOD COUNT 7.9 K/uL (4.8-10.8)
[2017-09-20 11:38] LABS: ALB/GLOB RATIO 1.5 (1.0-2.1); ALBUMIN 4.5 g/dL (3.5-5.0); ALT/SGPT 32 U/L (21-72); AST/SGOT 40 U/L (17-59); BLOOD UREA NITROGEN 10 mg/dL (9-20); CALCIUM 9.3 mg/dl (8.6-10.4); GFR AFRICAN-AMERICAN > 60; GFR NON-AFRICAN AMERICAN > 60
[2017-09-20 15:43] LABS: CK-MB 0.49 ng/mL (0.0-3.38); TROPONIN I 0.016 ng/mL (0.00-0.120)
[2017-09-20] MEDS: Dorzolamide 2% Opht Sol 10ml OU SCH (21:22)
[2017-09-20] MEDS: Latanoprost 2.5 ml Opht Soln OU SCH (21:22)
--- NOTE | 2017-09-20 22:52 | CP.PCM.PN ---
Subjective - Date & Time of Evaluation Date of Evaluation: 09/20/17 Time of Evaluation: 19:50 - Subjective Subjective: Patient seen and evaluated Denies chest pain and dyspnea Stress test abnormal Likely requires Diag intervention Will d/w Dr. Carranza. May need transfer to [place] for PCI by Dr. Carranza Objective - Vital Signs/Intake and Output Vital Signs (last 24 hours): Temp Pulse Resp BP Pulse Ox 97.9 F 56 L 20 124/78 98 09/20/17 15:05 09/20/17 22:07 09/20/17 15:05 09/20/17 15:05 09/20/17 15:05 - Medications Medications: Current Medications Al Hydrox/Mg Hydrox/Simethicone (Maalox Plus 30 Ml) 30 ml PO TID [facility] Last Admin: 09/20/17 17:20 Dose: 30 ml Aspirin (Ecotrin) 81 mg PO DAILY [facility] Last Admin: 09/20/17 10:53 Dose: 81 mg Clopidogrel Bisulfate (Plavix) 75 mg PO DAILY [facility] Last Admin: 09/20/17 10:53 Dose: 75 mg Dorzolamide HCl (Trusopt) 0 ml OU HS [facility] Last Admin: 09/20/17 21:22 Dose: 1 drop Enoxaparin Sodium (Lovenox) 70 mg SC Q12H [facility] Last Admin: 09/20/17 21:22 Dose: 70 mg Latanoprost (Xalatan Opht) 0 ml OU HS [facility] Last Admin: 09/20/17 21:22 Dose: 1 ml Metoprolol Tartrate (Lopressor) 12.5 mg PO BID [facility] Last Admin: 09/20/17 17:22 Dose: Not Given Rosuvastatin Calcium (Crestor) 5 mg PO HS [facility] Last Admin: 09/20/17 21:21 Dose: 5 mg - Labs Labs: 09/20/17 11:06 09/20/17 11:06 PT 12.9 SECONDS (9.7-12.2) H 09/18/17 11:28 INR 1.2 09/18/17 11:28 APTT 34 SECONDS (21-34) 09/18/17 11:28
--- NOTE | 2017-09-20 23:55 | CP.PCM.PN ---
Subjective - Date & Time of Evaluation Date of Evaluation: 09/20/17 Time of Evaluation: 18:00 - Subjective Subjective: Pt seen and examined at bedside Objective - Vital Signs/Intake and Output Vital Signs (last 24 hours): Temp Pulse Resp BP Pulse Ox 97.9 F 56 L 20 124/78 98 09/20/17 15:05 09/20/17 22:07 09/20/17 15:05 09/20/17 15:05 09/20/17 15:05 - Medications Medications: Current Medications Al Hydrox/Mg Hydrox/Simethicone (Maalox Plus 30 Ml) 30 ml PO TID [facility] Last Admin: 09/20/17 17:20 Dose: 30 ml Aspirin (Ecotrin) 81 mg PO DAILY [facility] Last Admin: 09/20/17 10:53 Dose: 81 mg Clopidogrel Bisulfate (Plavix) 75 mg PO DAILY [facility] Last Admin: 09/20/17 10:53 Dose: 75 mg Dorzolamide HCl (Trusopt) 0 ml OU HS [facility] Last Admin: 09/20/17 21:22 Dose: 1 drop Enoxaparin Sodium (Lovenox) 70 mg SC Q12H [facility] Last Admin: 09/20/17 21:22 Dose: 70 mg Latanoprost (Xalatan Opht) 0 ml OU HS [facility] Last Admin: 09/20/17 21:22 Dose: 1 ml Metoprolol Tartrate (Lopressor) 12.5 mg PO BID [facility] Last Admin: 09/20/17 17:22 Dose: Not Given Rosuvastatin Calcium (Crestor) 5 mg PO HS [facility] Last Admin: 09/20/17 21:21 Dose: 5 mg - Labs Labs: 09/20/17 11:06 09/20/17 11:06 PT 12.9 SECONDS (9.7-12.2) H 09/18/17 11:28 INR 1.2 09/18/17 11:28 APTT 34 SECONDS (21-34) 09/18/17 11:28
[2017-09-21 07:31] LABS: BASO # 0.1 K/uL (0.0-0.2); BASO % 0.5 % (0.0-2.0); EOS # 0.1 K/uL (0.0-0.7); EOS % 1.1 % (0.0-4.0); HEMOGLOBIN 16.4 g/dL (12.0-18.0); LYMPH # 2.2 K/uL (1.0-4.3); LYMPH % 22.8 % (20.0-40.0); MEAN CELL VOLUME 88.5 fL (80.0-94.0); MEAN CORPUSCULAR HEMOGLOBIN 30.9 pg (27.0-31.0); MEAN CORPUSCULAR HGB CONC 34.9 g/dL (33.0-37.0); MEAN PLATELET VOLUME 9.9 fL (7.2-11.7); MONO # 0.6 K/uL (0.0-0.8); NEUT # 6.8 K/uL (1.8-7.0); NEUT % 69.6 % (50.0-75.0); NRBC % 0.2 % (0.0-2.0); RBC 5.31 Mil/uL (4.40-5.90); RED CELL DISTRIBUTION WIDTH 13.4 % (11.5-14.5); WHITE BLOOD COUNT 9.8 K/uL (4.8-10.8)
[2017-09-21 07:52] LABS: ALB/GLOB RATIO 1.3 (1.0-2.1); ALT/SGPT 43 U/L (21-72); AST/SGOT 35 U/L (17-59); BLOOD UREA NITROGEN 13 mg/dL (9-20); CALCIUM 9.2 mg/dl (8.6-10.4); GFR AFRICAN-AMERICAN > 60; GFR NON-AFRICAN AMERICAN > 60
[2017-09-21] MEDS: Alum-Mag Hydrox-Simethicone Susp (30 mL) PO SCH ×3 (10:55→17:46)
[2017-09-21] MEDS: Enoxaparin 80 mg Syringe SC SCH ×2 (10:55→22:05)
[2017-09-21] MEDS: Dorzolamide 2% Opht Sol 10ml OU SCH (22:05)
[2017-09-21] MEDS: Latanoprost 2.5 ml Opht Soln OU SCH (22:05)
--- NOTE | 2017-09-21 22:58 | CP.PCM.PN ---
Subjective - Date & Time of Evaluation Date of Evaluation: 09/21/17 Time of Evaluation: 17:25 - Subjective Subjective: Patient seen and evaluated Abnormal stress test and Troponin Patient will be transferred to [place] on for further management including stenting Objective - Vital Signs/Intake and Output Vital Signs (last 24 hours): Temp Pulse Resp BP Pulse Ox 98.1 F 86 20 115/69 98 09/21/17 15:00 09/21/17 20:10 09/21/17 15:00 09/21/17 15:00 09/21/17 15:00 Intake and Output: 09/21/17 09/22/17 18:59 06:59 Intake Total 600 Balance 600 - Medications Medications: Current Medications Al Hydrox/Mg Hydrox/Simethicone (Maalox Plus 30 Ml) 30 ml PO TID [facility] Last Admin: 09/21/17 17:46 Dose: 30 ml Aspirin (Ecotrin) 81 mg PO DAILY [facility] Last Admin: 09/21/17 10:55 Dose: 81 mg Clopidogrel Bisulfate (Plavix) 75 mg PO DAILY [facility] Last Admin: 09/21/17 10:55 Dose: 75 mg Dorzolamide HCl (Trusopt) 0 ml OU HS [facility] Last Admin: 09/21/17 22:05 Dose: 1 drop Enoxaparin Sodium (Lovenox) 70 mg SC Q12H [facility] Last Admin: 09/21/17 22:05 Dose: 70 mg Latanoprost (Xalatan Opht) 0 ml OU HS [facility] Last Admin: 09/21/17 22:05 Dose: 2.5 ml Metoprolol Tartrate (Lopressor) 12.5 mg PO BID [facility] Last Admin: 09/21/17 20:20 Dose: Not Given Rosuvastatin Calcium (Crestor) 5 mg PO HS [facility] Last Admin: 09/21/17 22:05 Dose: 5 mg - Labs Labs: 09/21/17 06:38 09/21/17 06:38 PT 12.9 SECONDS (9.7-12.2) H 09/18/17 11:28 INR 1.2 09/18/17 11:28 APTT 34 SECONDS (21-34) 09/18/17 11:28
--- NOTE | 2017-09-22 01:06 | CP.PCM.PN ---
Subjective - Date & Time of Evaluation Date of Evaluation: 09/21/17 Time of Evaluation: 19:40 - Subjective Subjective: Pt is scheduled for cardiac acth on , pts ia over all improved, chest pain resolved, positive tropnins Objective - Vital Signs/Intake and Output Vital Signs (last 24 hours): Temp Pulse Resp BP Pulse Ox 98.1 F 86 20 115/69 98 09/21/17 15:00 09/21/17 20:10 09/21/17 15:00 09/21/17 15:00 09/21/17 15:00 Intake and Output: 09/21/17 09/22/17 18:59 06:59 Intake Total 600 Balance 600 - Medications Medications: Current Medications Al Hydrox/Mg Hydrox/Simethicone (Maalox Plus 30 Ml) 30 ml PO TID [facility] Last Admin: 09/21/17 17:46 Dose: 30 ml Aspirin (Ecotrin) 81 mg PO DAILY [facility] Last Admin: 09/21/17 10:55 Dose: 81 mg Clopidogrel Bisulfate (Plavix) 75 mg PO DAILY [facility] Last Admin: 09/21/17 10:55 Dose: 75 mg Dorzolamide HCl (Trusopt) 0 ml OU HS [facility] Last Admin: 09/21/17 22:05 Dose: 1 drop Enoxaparin Sodium (Lovenox) 70 mg SC Q12H [facility] Last Admin: 09/21/17 22:05 Dose: 70 mg Latanoprost (Xalatan Opht) 0 ml OU HS [facility] Last Admin: 09/21/17 22:05 Dose: 2.5 ml Metoprolol Tartrate (Lopressor) 12.5 mg PO BID [facility] Last Admin: 09/21/17 20:20 Dose: Not Given Rosuvastatin Calcium (Crestor) 5 mg PO HS [facility] Last Admin: 09/21/17 22:05 Dose: 5 mg - Labs Labs: 09/21/17 06:38 09/21/17 06:38 PT 12.9 SECONDS (9.7-12.2) H 09/18/17 11:28 INR 1.2 09/18/17 11:28 APTT 34 SECONDS (21-34) 09/18/17 11:28 - Constitutional Appears: No Acute Distress - Head Exam Head Exam: ATRAUMATIC, NORMAL INSPECTION, NORMOCEPHALIC - Eye Exam Eye Exam: EOMI, Normal appearance, PERRL Pupil Exam: NORMAL ACCOMODATION, PERRL - Respiratory Exam Respiratory Exam: Clear to Ausculation Bilateral, NORMAL BREATHING PATTERN - Cardiovascular Exam Cardiovascular Exam: REGULAR RHYTHM, +S1, +S2. absent: Murmur - GI/Abdominal Exam GI & Abdominal Exam: Soft, Normal Bowel Sounds. absent: Tenderness - Rectal Exam Rectal Exam: Deferred Assessment and Plan (1) Bradycardia Status: Acute (2) Chest pain Status: Acute (3) NSTEMI (non-ST elevated myocardial infarction) Assessment & Plan: positive troponins cardiac cath on Status: Acute
--- NOTE | 2017-09-22 08:24 | CARD ---
APPROVED REPORT Date of service: 09/20/2017 Protocol: PHARMACOLOGICAL STRESS Test Type: LEXISCAN Test Indications: CHEST PAIN Medications: LIST SCAN Medical History: CHEST PAIN Target HR: 161 bpm Resting ECG: NSR W/ IRBBB Resting Heart Rate: 56 bpm Resting Blood Pressure: 110/70mmHg submaximum (85%): 137 bpm TEST SUMMARY [id number]/70.0. INFUSIONDOSE 100:[id number]/70.0. [id number]/60.0. PROCEDURE Pharmacologic stress testing was performed using 0.4mg per 5ml of regadenoson given intravenously over 7-10 seconds. Reversal agent aminophyline 125 mg, given intravenously for Chest Pain. POST EXERCISE Reason for Termination: Protocol Completed Target HR: No Max HR: 57 bpm 60% of Maximum Predicted HR: 161 bpm Exercise duration: 00:30 min:sec, 0 Stage Exercise capacity: 1.0METs Max Blood Pressure: 120/70mmHg Blood Pressure response to exercise: normal resting BP - appropriate response Heart Rate response to exercise: appropriate Chest Pain: No, none Angina index: 0 Arrhythmia: No, none ST Change: No, none Deviation: 0 mm INTERPRETATION Stress EKG Conclusion: NEGATIVE LEXISCAN STRESS TEST NORMAL BP RESPONSE TO LEXISCAN NUCLEAR STUDIES TO BE READ SEPARATELY EXAM: Myocardial Perfusion STRESS/REST Imaging Protocol The imaging protocol used to acquire images was Stress Tc-99m/rest Tc-99m 1 day Rest Spect myocardial perfusion imaging was performed in supine position 45 minutes following the injection of 32.0 mCi of Tc-99 Myoview. Gated Stress Spect was performed 45 minutes after intravenous 13.2 mCi Tc-99 Myoview injection. The images were gated to evaluate regional wall motion and calculate ventricular ejection fraction.Images were reconstructed using backfilter projection method in short horizontal and verticle long axis. Spect slices were generated. RESTING DATA EDV89.61qpTB3.10L/min ESV36.00mlMyocardial Hugg423.00g Av. Heart Rate57.00bpm EF60.00% STRESS DATA EDV96.24cnMM8.60L/min ESV38.00mlMyocardial Wkbd687.00g EF60.00% Regional WT score at stress:1.00 Regional WM score at stress:0.00 Summed WT score at stress:3.00 Av. Heart Rate63.00bpmSummed WM score at stress:0.00 LV Perf. Quant 17 Seg. SSS4.00 17 Seg. SRS1.00 17 Seg. SDS3.00 Stress Defect Extent (% LAD)10.00Rest Defect Extent (% LAD)0.00Rev. Defect Extent (% LAD)10.00 Stress Defect Extent (% LCX)20.00Rest Defect Extent (% LCX)7.50Rev. Defect Extent (% LCX)0.00 Stress Defect Extent (% RCA)0.00Rest Defect Extent (% RCA)0.00Rev. Defect Extent (% RCA)0.00 Stress Defect Extent (% IRVIN)11.50Rest Defect Extent (% IRVIN)1.30Rev. Defect Extent (% IRVIN)7.00 Other Information Quality:Good IMPRESSION Abnormal Myocardial Perfusion exercise stress study Left Ventricle LV Function:Left ventricle systolic function is normal. The Ejection Fraction is 60-65%. Conclusion 1. Moderate sized stress induced lateral wall ischemia. Normal EF. Abnormal stress test
[2017-09-22 08:54] LABS: BASO % 0.4 % (0.0-2.0); EOS # 0.1 K/uL (0.0-0.7); EOS % 1.4 % (0.0-4.0); HEMOGLOBIN 16.5 g/dL (12.0-18.0); LYMPH # 1.7 K/uL (1.0-4.3); LYMPH % 16.3 % (20.0-40.0); MEAN CELL VOLUME 90.1 fL (80.0-94.0); MEAN CORPUSCULAR HEMOGLOBIN 31.1 pg (27.0-31.0); MEAN CORPUSCULAR HGB CONC 34.5 g/dL (33.0-37.0); MEAN PLATELET VOLUME 9.6 fL (7.2-11.7); MONO # 0.7 K/uL (0.0-0.8); MONO % 6.4 % (0.0-10.0); NEUT # 7.8 K/uL (1.8-7.0); NEUT % 75.5 % (50.0-75.0); NRBC % 0.1 % (0.0-2.0); RBC 5.31 Mil/uL (4.40-5.90); RED CELL DISTRIBUTION WIDTH 13.6 % (11.5-14.5); WHITE BLOOD COUNT 10.3 K/uL (4.8-10.8)
[2017-09-22 09:23] LABS: ALB/GLOB RATIO 1.3 (1.0-2.1); ALT/SGPT 64 U/L (21-72); AST/SGOT 42 U/L (17-59); BLOOD UREA NITROGEN 16 mg/dL (9-20); CALCIUM 8.8 mg/dl (8.6-10.4); GFR AFRICAN-AMERICAN > 60; GFR NON-AFRICAN AMERICAN > 60
[2017-09-22] MEDS: Alum-Mag Hydrox-Simethicone Susp (30 mL) PO SCH ×3 (10:53→18:29)
[2017-09-22] MEDS: Enoxaparin 80 mg Syringe SC SCH ×2 (10:54→21:15)
--- NOTE | 2017-09-22 15:53 | PQF ---
PROVIDER RESPONSE TEXT: NSTEMI REVIEWER QUERY TEXT: Angina Type Angina is documented in the Medical Record. Please specify the type Such as: -- Angina pectoris with documented spasm -- Angina equivalent -- Angina of effort -- Post infarction angina -- Other, please specify The patient's Clinical Indicators include: ?57 year old male with history of coronary artery disease, complaining of chest pain, midsternal and left sided chest pain and burning sensation. ALS gave him aspirin and 1 nitro spray and the pain reso lved?. Troponin I: 0.2570/0.1230 EKG: Sinus bradycardia. Right bundle branch block. Aspirin 81 mg PO DAILY Clopidogrel Bisulfate 75 mg PO DAILY Enoxaparin Sodium 70 mg SC Q12H Query created by: Serafin Capellan on 09/21/2017 11:38 AM Electronically signed by: Samm Briones MD 09/22/2017 3:49 PM
[2017-09-22] MEDS: Dorzolamide 2% Opht Sol 10ml OU SCH (21:16)
[2017-09-22] MEDS: Latanoprost 2.5 ml Opht Soln OU SCH (21:16)
--- NOTE | 2017-09-22 22:34 | CP.PCM.PN ---
Subjective - Date & Time of Evaluation Date of Evaluation: 09/22/17 Time of Evaluation: 18:00 - Subjective Subjective: Pt seen and examined at bedside, Objective - Vital Signs/Intake and Output Vital Signs (last 24 hours): Temp Pulse Resp BP Pulse Ox 97.9 F 70 20 111/63 99 09/22/17 15:11 09/22/17 18:32 09/22/17 15:11 09/22/17 18:32 09/22/17 15:11 - Medications Medications: Current Medications Al Hydrox/Mg Hydrox/Simethicone (Maalox Plus 30 Ml) 30 ml PO TID [facility] Last Admin: 09/22/17 18:29 Dose: 30 ml Aspirin (Ecotrin) 81 mg PO DAILY [facility] Last Admin: 09/22/17 10:53 Dose: 81 mg Clopidogrel Bisulfate (Plavix) 75 mg PO DAILY [facility] Last Admin: 09/22/17 10:54 Dose: 75 mg Dorzolamide HCl (Trusopt) 0 ml OU HS [facility] Last Admin: 09/22/17 21:16 Dose: 1 drop Enoxaparin Sodium (Lovenox) 70 mg SC Q12H [facility] Last Admin: 09/22/17 21:15 Dose: 70 mg Latanoprost (Xalatan Opht) 0 ml OU HS [facility] Last Admin: 09/22/17 21:16 Dose: 2.5 ml Metoprolol Tartrate (Lopressor) 12.5 mg PO BID [facility] Last Admin: 09/22/17 18:29 Dose: 12.5 mg Rosuvastatin Calcium (Crestor) 5 mg PO HS [facility] Last Admin: 09/22/17 21:15 Dose: 5 mg - Labs Labs: 09/22/17 08:37 09/22/17 08:37 PT 12.9 SECONDS (9.7-12.2) H 09/18/17 11:28 INR 1.2 09/18/17 11:28 APTT 34 SECONDS (21-34) 09/18/17 11:28 Assessment and Plan (1) Bradycardia Status: Acute (2) Chest pain Status: Acute (3) NSTEMI (non-ST elevated myocardial infarction) Status: Acute
--- NOTE | 2017-09-23 00:31 | CP.PCM.PN ---
Subjective - Date & Time of Evaluation Date of Evaluation: 09/22/17 Time of Evaluation: 15:10 - Subjective Subjective: Patient seen and evaluated Abnormal stress test and Troponin Patient will be transferred to [place] on for further management including stenting Objective - Vital Signs/Intake and Output Vital Signs (last 24 hours): Temp Pulse Resp BP Pulse Ox 98.4 F 67 20 99/59 L 98 09/22/17 23:19 09/22/17 23:19 09/22/17 23:19 09/22/17 23:19 09/22/17 23:19 Intake and Output: 09/22/17 09/23/17 18:59 06:59 Intake Total 480 Balance 480 - Medications Medications: Current Medications Al Hydrox/Mg Hydrox/Simethicone (Maalox Plus 30 Ml) 30 ml PO TID [facility] Last Admin: 09/22/17 18:29 Dose: 30 ml Aspirin (Ecotrin) 81 mg PO DAILY [facility] Last Admin: 09/22/17 10:53 Dose: 81 mg Clopidogrel Bisulfate (Plavix) 75 mg PO DAILY [facility] Last Admin: 09/22/17 10:54 Dose: 75 mg Dorzolamide HCl (Trusopt) 0 ml OU HS [facility] Last Admin: 09/22/17 21:16 Dose: 1 drop Enoxaparin Sodium (Lovenox) 70 mg SC Q12H [facility] Last Admin: 09/22/17 21:15 Dose: 70 mg Latanoprost (Xalatan Opht) 0 ml OU HS [facility] Last Admin: 09/22/17 21:16 Dose: 2.5 ml Metoprolol Tartrate (Lopressor) 12.5 mg PO BID [facility] Last Admin: 09/22/17 18:29 Dose: 12.5 mg Rosuvastatin Calcium (Crestor) 5 mg PO HS [facility] Last Admin: 09/22/17 21:15 Dose: 5 mg - Labs Labs: 09/22/17 08:37 09/22/17 08:37 PT 12.9 SECONDS (9.7-12.2) H 09/18/17 11:28 INR 1.2 09/18/17 11:28 APTT 34 SECONDS (21-34) 09/18/17 11:28
[2017-09-23 04:47] LABS: BASO % 0.4 % (0.0-2.0); EOS # 0.2 K/uL (0.0-0.7); EOS % 1.4 % (0.0-4.0); LYMPH # 2.5 K/uL (1.0-4.3); LYMPH % 23.4 % (20.0-40.0); MEAN CELL VOLUME 88.4 fL (80.0-94.0); MEAN CORPUSCULAR HEMOGLOBIN 30.9 pg (27.0-31.0); MEAN CORPUSCULAR HGB CONC 34.9 g/dL (33.0-37.0); MEAN PLATELET VOLUME 9.1 fL (7.2-11.7); MONO # 0.7 K/uL (0.0-0.8); NEUT # 7.5 K/uL (1.8-7.0); NEUT % 68.8 % (50.0-75.0); NRBC % 0.3 % (0.0-2.0); RBC 5.5 Mil/uL (4.40-5.90); RED CELL DISTRIBUTION WIDTH 13.6 % (11.5-14.5); WHITE BLOOD COUNT 10.9 K/uL (4.8-10.8)
[2017-09-23 05:17] LABS: ALB/GLOB RATIO 1.4 (1.0-2.1); ALBUMIN 4.4 g/dL (3.5-5.0); ALT/SGPT 78 U/L (21-72); AST/SGOT 44 U/L (17-59); BLOOD UREA NITROGEN 12 mg/dL (9-20); CALCIUM 9.6 mg/dl (8.6-10.4); GFR AFRICAN-AMERICAN > 60; GFR NON-AFRICAN AMERICAN > 60
[2017-09-23] MEDS: Enoxaparin 80 mg Syringe SC SCH (22:04)
[2017-09-23] MEDS: Alum-Mag Hydrox-Simethicone Susp (30 mL) PO SCH (22:27)
[2017-09-23] MEDS: Latanoprost 2.5 ml Opht Soln OU SCH (22:27)
[2017-09-23] MEDS: Dorzolamide 2% Opht Sol 10ml OU SCH (22:29)
--- NOTE | 2017-09-23 23:36 | CP.PCM.PN ---
Subjective - Date & Time of Evaluation Date of Evaluation: 09/23/17 Time of Evaluation: 21:30 - Subjective Subjective: Patient s/p RCA PCI by Dr. Carranza Recommend d/c patient in am and f/u with Dr. 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) Continue ASA, Plavix, Statins and B blockers Objective - Vital Signs/Intake and Output Vital Signs (last 24 hours): Temp Pulse Resp BP Pulse Ox 98.1 F 75 20 118/72 97 09/23/17 22:29 09/23/17 22:29 09/23/17 22:29 09/23/17 22:29 09/23/17 22:29 Intake and Output: 09/23/17 09/24/17 18:59 06:59 Output Total 700 Balance -700 - Medications Medications: Current Medications Al Hydrox/Mg Hydrox/Simethicone (Maalox Plus 30 Ml) 30 ml PO TID [facility] Last Admin: 09/23/17 22:27 Dose: 30 ml Aspirin (Ecotrin) 81 mg PO DAILY [facility] Last Admin: 09/23/17 06:51 Dose: 81 mg Clopidogrel Bisulfate (Plavix) 75 mg PO DAILY [facility] Last Admin: 09/23/17 06:51 Dose: 75 mg Dorzolamide HCl (Trusopt) 0 ml OU HS [facility] Last Admin: 09/23/17 22:29 Dose: 1 drop Enoxaparin Sodium (Lovenox) 40 mg SC DAILY [facility] Latanoprost (Xalatan Opht) 0 ml OU HS [facility] Last Admin: 09/23/17 22:27 Dose: 2.5 ml Metoprolol Tartrate (Lopressor) 12.5 mg PO BID [facility] Last Admin: 09/23/17 22:27 Dose: 12.5 mg Rosuvastatin Calcium (Crestor) 5 mg PO HS [facility] Last Admin: 09/23/17 22:27 Dose: 5 mg - Labs Labs: 09/23/17 04:42 09/23/17 04:42 PT 12.9 SECONDS (9.7-12.2) H 09/18/17 11:28 INR 1.2 09/18/17 11:28 APTT 34 SECONDS (21-34) 09/18/17 11:28
[2017-09-24] MEDS ORDERED: Alum-Mag Hydrox-Simethicone Susp (30 mL) PO ONE (04:50)
--- NOTE | 2017-09-24 07:30 | CP.PCM.PN ---
Subjective - Date & Time of Evaluation Date of Evaluation: 09/23/17 Time of Evaluation: 16:00 - Subjective Subjective: Pt is seen and examined, Objective - Vital Signs/Intake and Output Vital Signs (last 24 hours): Temp Pulse Resp BP Pulse Ox 98.0 F 79 20 107/69 96 09/24/17 07:26 09/24/17 07:26 09/24/17 07:26 09/24/17 07:26 09/24/17 07:26 Intake and Output: 09/24/17 09/24/17 06:59 18:59 Output Total 1000 Balance -1000 - Medications Medications: Current Medications Al Hydrox/Mg Hydrox/Simethicone (Maalox Plus 30 Ml) 30 ml PO TID [facility] Last Admin: 09/23/17 22:27 Dose: 30 ml Aspirin (Ecotrin) 81 mg PO DAILY [facility] Last Admin: 09/23/17 06:51 Dose: 81 mg Clopidogrel Bisulfate (Plavix) 75 mg PO DAILY [facility] Last Admin: 09/23/17 06:51 Dose: 75 mg Dorzolamide HCl (Trusopt) 0 ml OU HS [facility] Last Admin: 09/23/17 22:29 Dose: 1 drop Enoxaparin Sodium (Lovenox) 40 mg SC DAILY [facility] Latanoprost (Xalatan Opht) 0 ml OU HS [facility] Last Admin: 09/23/17 22:27 Dose: 2.5 ml Metoprolol Tartrate (Lopressor) 12.5 mg PO BID [facility] Last Admin: 09/23/17 22:27 Dose: 12.5 mg Rosuvastatin Calcium (Crestor) 5 mg PO HS [facility] Last Admin: 09/23/17 22:27 Dose: 5 mg - Labs Labs: 09/23/17 04:42 09/23/17 04:42 PT 12.9 SECONDS (9.7-12.2) H 09/18/17 11:28 INR 1.2 09/18/17 11:28 APTT 34 SECONDS (21-34) 09/18/17 11:28 Assessment and Plan (1) Bradycardia Status: Acute (2) Chest pain Status: Acute (3) NSTEMI (non-ST elevated myocardial infarction) Status: Acute
[2017-09-24] MEDS: Enoxaparin 40 mg Syringe SC SCH (09:33)
[2017-09-24] MEDS: Alum-Mag Hydrox-Simethicone Susp (30 mL) PO SCH ×3 (09:33→17:49)
[2017-09-24] MEDS ORDERED: Sodium Chloride 0.9% 1,000 ML IV SCH (13:15)
[2017-09-24] MEDS: Latanoprost 2.5 ml Opht Soln OU SCH (22:10)
[2017-09-24] MEDS: Dorzolamide 2% Opht Sol 10ml OU SCH (22:10)
--- NOTE | 2017-09-25 00:24 | CP.PCM.PN ---
Subjective - Date & Time of Evaluation Date of Evaluation: 09/24/17 Time of Evaluation: 18:20 - Subjective Subjective: Patient s/p RCA PCI by Dr. Carranza Recommend d/c patient in am and f/u with Dr. 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) Continue ASA, Plavix, Statins and B blockers Objective - Vital Signs/Intake and Output Vital Signs (last 24 hours): Temp Pulse Resp BP Pulse Ox 98.3 F 79 18 101/59 L 95 09/24/17 15:53 09/24/17 15:53 09/24/17 15:53 09/24/17 15:53 09/24/17 15:53 Intake and Output: 09/24/17 09/25/17 18:59 06:59 Intake Total 650 Balance 650 - Medications Medications: Current Medications Al Hydrox/Mg Hydrox/Simethicone (Maalox Plus 30 Ml) 30 ml PO TID [facility] Last Admin: 09/24/17 17:49 Dose: 30 ml Aspirin (Ecotrin) 81 mg PO DAILY [facility] Last Admin: 09/24/17 09:33 Dose: 81 mg Clopidogrel Bisulfate (Plavix) 75 mg PO DAILY [facility] Last Admin: 09/24/17 09:32 Dose: 75 mg Dorzolamide HCl (Trusopt) 0 ml OU HS [facility] Last Admin: 09/24/17 22:10 Dose: 1 drop Enoxaparin Sodium (Lovenox) 40 mg SC DAILY [facility] Last Admin: 09/24/17 09:33 Dose: 40 mg Famotidine (Pepcid) 20 mg PO DAILY [facility] Last Admin: 09/24/17 14:16 Dose: 20 mg Sodium Chloride (Sodium Chloride 0.9%) 1,000 mls @ 50 mls/hr IV .Q20H [facility] Stop: 09/25/17 09:14 Last Admin: 09/24/17 13:50 Dose: 50 mls/hr Isosorbide Mononitrate (Imdur Er) 30 mg PO DAILY [facility] Last Admin: 09/24/17 11:38 Dose: 30 mg Latanoprost (Xalatan Opht) 0 ml OU HS [facility] Last Admin: 09/24/17 22:10 Dose: 2.5 ml Metoprolol Tartrate (Lopressor) 12.5 mg PO BID [facility] Last Admin: 09/24/17 17:49 Dose: 12.5 mg Rosuvastatin Calcium (Crestor) 5 mg PO HS [facility] Last Admin: 09/24/17 22:10 Dose: 5 mg - Labs Labs: 09/23/17 04:42 09/23/17 04:42 PT 12.9 SECONDS (9.7-12.2) H 09/18/17 11:28 INR 1.2 09/18/17 11:28 APTT 34 SECONDS (21-34) 09/18/17 11:28 Assessment and Plan (1) Bradycardia Status: Acute (2) Chest pain Status: Acute (3) NSTEMI (non-ST elevated myocardial infarction) Status: Acute
[2017-09-25 01:55] VITALS: RESP 20
--- NOTE | 2017-09-25 06:46 | CP.PCM.PN ---
Subjective - Date & Time of Evaluation Date of Evaluation: 09/24/17 Time of Evaluation: 20:45 - Subjective Subjective: Patient episodes of reproduble chest pains Troponins negative No new EKG changes S/P RCA PCI by Dr. 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) in 1-2 weeks F/U PMD in 1 month No further recommendations from md Objective - Vital Signs/Intake and Output Vital Signs (last 24 hours): Temp Pulse Resp BP Pulse Ox 98.5 F 74 20 102/59 L 95 09/24/17 23:05 09/25/17 03:58 09/24/17 23:05 09/25/17 04:30 09/24/17 23:05 Intake and Output: 09/24/17 09/25/17 18:59 06:59 Intake Total 650 Balance 650 - Medications Medications: Current Medications Al Hydrox/Mg Hydrox/Simethicone (Maalox Plus 30 Ml) 30 ml PO TID [facility] Last Admin: 09/24/17 17:49 Dose: 30 ml Aspirin (Ecotrin) 81 mg PO DAILY [facility] Last Admin: 09/24/17 09:33 Dose: 81 mg Clopidogrel Bisulfate (Plavix) 75 mg PO DAILY [facility] Last Admin: 09/24/17 09:32 Dose: 75 mg Dorzolamide HCl (Trusopt) 0 ml OU HS [facility] Last Admin: 09/24/17 22:10 Dose: 1 drop Enoxaparin Sodium (Lovenox) 40 mg SC DAILY [facility] Last Admin: 09/24/17 09:33 Dose: 40 mg Famotidine (Pepcid) 20 mg PO DAILY [facility] Last Admin: 09/24/17 14:16 Dose: 20 mg Sodium Chloride (Sodium Chloride 0.9%) 1,000 mls @ 50 mls/hr IV .Q20H [facility] Stop: 09/25/17 09:14 Last Admin: 09/24/17 13:50 Dose: 50 mls/hr Isosorbide Mononitrate (Imdur Er) 30 mg PO DAILY [facility] Last Admin: 09/24/17 11:38 Dose: 30 mg Latanoprost (Xalatan Opht) 0 ml OU HS [facility] Last Admin: 09/24/17 22:10 Dose: 2.5 ml Metoprolol Tartrate (Lopressor) 12.5 mg PO BID [facility] Last Admin: 09/24/17 17:49 Dose: 12.5 mg Rosuvastatin Calcium (Crestor) 5 mg PO [facility] Last Admin: 09/24/17 22:10 Dose: 5 mg - Labs Labs: 09/23/17 04:42 09/23/17 04:42 PT 12.9 SECONDS (9.7-12.2) H 09/18/17 11:28 INR 1.2 09/18/17 11:28 APTT 34 SECONDS (21-34) 09/18/17 11:28
[2017-09-25 07:55] LABS: BLOOD UREA NITROGEN 18 mg/dL (9-20); CALCIUM 8.8 mg/dl (8.6-10.4); GFR AFRICAN-AMERICAN > 60; GFR NON-AFRICAN AMERICAN > 60
[2017-09-25] MEDS: Alum-Mag Hydrox-Simethicone Susp (30 mL) PO SCH ×2 (10:02→14:44)
[2017-09-25] MEDS: Enoxaparin 40 mg Syringe SC SCH (10:03)
[2017-09-25 15:45] VITALS: BP 122/73; PULSE 77; TEMP 97.8; O2SAT 97
--- NOTE | 2017-09-25 16:32 | CP.PCM.PN ---
Subjective - Date & Time of Evaluation Date of Evaluation: 09/25/17 Time of Evaluation: 12:35 - Subjective Subjective: Patient seen today, denies any chest pain sob, palpitations, dizziness, headache , abdominal pain, N/V No overnight events recorded on monitor troponin x 3 negative and EKG- no changes Objective - Vital Signs/Intake and Output Vital Signs (last 24 hours): Temp Pulse Resp BP Pulse Ox 97.8 F 77 20 122/73 97 09/25/17 15:08 09/25/17 15:08 09/25/17 15:08 09/25/17 15:08 09/25/17 15:08 Intake and Output: 09/25/17 09/25/17 06:59 18:59 Intake Total 650 Balance 650 - Medications Medications: Current Medications Al Hydrox/Mg Hydrox/Simethicone (Maalox Plus 30 Ml) 30 ml PO TID [facility] Last Admin: 09/25/17 14:44 Dose: 30 ml Aspirin (Ecotrin) 81 mg PO DAILY [facility] Last Admin: 09/25/17 10:02 Dose: 81 mg Clopidogrel Bisulfate (Plavix) 75 mg PO DAILY [facility] Last Admin: 09/25/17 10:02 Dose: 75 mg Dorzolamide HCl (Trusopt) 0 ml OU HS [facility] Last Admin: 09/24/17 22:10 Dose: 1 drop Enoxaparin Sodium (Lovenox) 40 mg SC DAILY [facility] Last Admin: 09/25/17 10:03 Dose: 40 mg Famotidine (Pepcid) 20 mg PO DAILY [facility] Last Admin: 09/25/17 10:03 Dose: 20 mg Isosorbide Mononitrate (Imdur Er) 30 mg PO DAILY [facility] Last Admin: 09/25/17 10:03 Dose: 30 mg Latanoprost (Xalatan Opht) 0 ml OU HS [facility] Last Admin: 09/24/17 22:10 Dose: 2.5 ml Metoprolol Tartrate (Lopressor) 12.5 mg PO BID [facility] Last Admin: 09/25/17 10:09 Dose: 12.5 mg Rosuvastatin Calcium (Crestor) 5 mg PO HS [facility] Last Admin: 09/24/17 22:10 Dose: 5 mg - Labs Labs: 09/23/17 04:42 09/25/17 07:11 PT 12.9 SECONDS (9.7-12.2) H 09/18/17 11:28 INR 1.2 09/18/17 11:28 APTT 34 SECONDS (21-34) 09/18/17 11:28 - Constitutional Appears: Well, No Acute Distress - Respiratory Exam Respiratory Exam: Clear to Ausculation Bilateral, NORMAL BREATHING PATTERN - Cardiovascular Exam Cardiovascular Exam: REGULAR RHYTHM, +S1, +S2 - Neurological Exam Neurological Exam: Alert, Awake, Oriented x3 Assessment and Plan - Assessment and Plan (Free Text) Assessment: A/P [age] yr old male with pmhx of HTN, Hypercholesterolemia,admitted with chest pain s/p stress test - positive , Ef 60-65 S/P RCA PCI by Dr. Carranza developed chest pain/ burning left ant. chest wall yesterday morning and overnight post procedure EKG x 3 - done - no acute changes from previous EKG troponin x 3 repeated - negative seen by Dr. Francis , cleared ro discharge home today from cardiolgy standpoint and f/u wiht Dr. Carranza office in 1 week D/W Dr. Briones, stable for discharge home today Discharge plan discussed with patient , who understands and agrees with plan Patient instructed to returns to ED if symptoms returns RX given
--- NOTE | 2017-09-26 02:00 | CP.PCM.DIS ---
Provider - Provider Date of Admission: 09/20/17 17:03 Attending physician: Samm Briones MD Time Spent in preparation of Discharge (in minutes): 45 Diagnosis - Discharge Diagnosis (1) Bradycardia Status: Acute (2) Chest pain Status: Acute (3) NSTEMI (non-ST elevated myocardial infarction) Status: Acute Hospital Course - Lab Results Lab Results: Most Recent Lab Values WBC 10.9 K/uL (4.8-10.8) H 09/23/17 04:42 RBC 5.50 Mil/uL (4.40-5.90) 09/23/17 04:42 Hgb 17.0 g/dL (12.0-18.0) 09/23/17 04:42 Hct 48.6 % (35.0-51.0) 09/23/17 04:42 MCV 88.4 fL (80.0-94.0) 09/23/17 04:42 MCH 30.9 pg (27.0-31.0) 09/23/17 04:42 MCHC 34.9 g/dL (33.0-37.0) 09/23/17 04:42 RDW 13.6 % (11.5-14.5) 09/23/17 04:42 Plt Count 191 K/uL (130-400) 09/23/17 04:42 MPV 9.1 fL (7.2-11.7) 09/23/17 04:42 Neut % (Auto) 68.8 % (50.0-75.0) 09/23/17 04:42 Lymph % (Auto) 23.4 % (20.0-40.0) 09/23/17 04:42 War[place] % (Auto) 6.0 % (0.0-10.0) 09/23/17 04:42 Eos % (Auto) 1.4 % (0.0-4.0) 09/23/17 04:42 Baso % (Auto) 0.4 % (0.0-2.0) 09/23/17 04:42 Neut # (Auto) 7.5 K/uL (1.8-7.0) H 09/23/17 04:42 Lymph # (Auto) 2.5 K/uL (1.0-4.3) 09/23/17 04:42 Warrick # (Auto) 0.7 K/uL (0.0-0.8) 09/23/17 04:42 Eos # (Auto) 0.2 K/uL (0.0-0.7) 09/23/17 04:42 Baso # (Auto) 0.0 K/uL (0.0-0.2) 09/23/17 04:42 PT 12.9 SECONDS (9.7-12.2) H 09/18/17 11:28 INR 1.2 09/18/17 11:28 APTT 34 SECONDS (21-34) 09/18/17 11:28 Sodium 139 mmol/L (132-148) 09/25/17 07:11 Potassium 4.3 mmol/L (3.6-5.2) 09/25/17 07:11 Chloride 104 mmol/L (98-107) 09/25/17 07:11 Carbon Dioxide 26 mmol/L (22-30) 09/25/17 07:11 Anion Gap 13 (10-20) 09/25/17 07:11 BUN 18 mg/dL (9-20) 09/25/17 07:11 Creatinine 1.1 mg/dL (0.8-1.5) 09/25/17 07:11 Est GFR ( Amer) > 60 09/25/17 07:11 Est GFR (Non-Af Amer) > 60 09/25/17 07:11 POC Glucose (mg/dL) 141 mg/dL (65-110) H 09/25/17 16:21 Random Glucose 109 mg/dL (75-110) 09/25/17 07:11 Calcium 8.8 mg/dl (8.6-10.4) 09/25/17 07:11 Magnesium 2.0 mg/dL (1.6-2.3) 09/25/17 07:11 Total Bilirubin 0.8 mg/dL (0.2-1.3) 09/23/17 04:42 AST 44 U/L (17-59) 09/23/17 04:42 ALT 78 U/L (21-72) H D 09/23/17 04:42 Alkaline Phosphatase 71 U/L (38-126) 09/23/17 04:42 Total Creatine Kinase 64 U/L (55-170) 09/20/17 11:06 CK-MB (Mass) 0.49 ng/mL (0.0-3.38) 09/20/17 11:06 Troponin I < 0.0120 ng/mL (0.00-0.120) 09/25/17 07:11 Total Protein 7.6 g/dL (6.3-8.3) 09/23/17 04:42 Albumin 4.4 g/dL (3.5-5.0) 09/23/17 04:42 Globulin 3.2 gm/dL (2.2-3.9) 09/23/17 04:42 Albumin/Globulin Ratio 1.4 (1.0-2.1) 09/23/17 04:42 Urine Color [place] (YELLOW) 09/18/17 11:57 Urine Clarity Clear (Clear) 09/18/17 11:57 Urine pH 5.0 (5.0-8.0) 09/18/17 11:57 Ur Specific [place] 1.028 (1.003-1.030) 09/18/17 11:57 Urine Protein Negative mg/dL (NEGATIVE) 09/18/17 11:57 Urine Glucose (UA) Normal mg/dL (Normal) 09/18/17 11:57 Urine Ketones Negative mg/dL (NEGATIVE) 09/18/17 11:57 Urine Blood 1+ (NEGATIVE) H 09/18/17 11:57 Urine Nitrate Negative (NEGATIVE) 09/18/17 11:57 Urine Bilirubin Negative (NEGATIVE) 09/18/17 11:57 Urine Urobilinogen 4.0 mg/dL (0.2-1.0) 09/18/17 11:57 Ur Leukocyte Esterase Neg Holly/uL (Negative) 09/18/17 11:57 Urine WBC (Auto) 1 /hpf (0-5) 09/18/17 11:57 Urine RBC (Auto) 9 /hpf (0-3) H 09/18/17 11:57 - Hospital Course Hospital Course: Patient episodes of reproduble chest pains Troponins negative No new EKG changes S/P RCA PCI by Dr. 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 Murray office [facility]- call and make appointment Please f/u with office in 1 week- call and make appointment Continue medication as per med. rec.
--- NOTE | 2017-09-26 09:36 | CARD ---
APPROVED REPORT Date of service: 09/18/2017 EKG Measurement Heart [id number] <Conclusion> Sinus bradycardia Right bundle branch block Abnormal ECG
--- NOTE | 2017-09-26 09:36 | CARD ---
APPROVED REPORT Date of service: 09/18/2017 EKG Measurement Heart [id number] <Conclusion> Sinus bradycardia Right bundle branch block Abnormal ECG
== END 2017-09-25 17:32 | disposition home or self-care (01) | DRG 282 ==
LOC: C.ER 10:38 → C.9E 12:24 → C.6T 15:36 → OBSVTOIN 09-20 17:03 → UNDODISIN 09-23 07:58 → C.6T 09-23 19:59
PROVIDERS: ADMIT Internal Medicine; ATTEND Internal Medicine
DX: I21.4 Non-ST elevation (NSTEMI) myocardial infarction (principal); E78.5 Hyperlipidemia, unspecified; F17.210 Nicotine dependence, cigarettes, uncomplicated; I10 Essential (primary) hypertension; I25.10 Atherosclerotic heart disease of native coronary artery without angina pectoris; Z95.5 Presence of coronary angioplasty implant and graft